=== PATIENT | male | born 2000 | race Hispanic/Latino ===

== ENCOUNTER 2019-12-03 15:16 | Emergency (ER) | payer OTHER ==
[~2019-12-03] VITALS: Ht 177.8 cm; Wt 81.7 kg
[2019-12-03] MEDS ORDERED: LIDOCAINE 2% MDV 20ML VIAL SC ONE (16:00)
[2019-12-03 16:53] VITALS: BP 127/70
== END 2019-12-03 16:55 | disposition home or self-care (01) ==
LOC: M ED 15:16
DX: S61.303A Unspecified open wound of left middle finger with damage to nail, initial encounter (principal); W23.0XXA Caught, crushed, jammed, or pinched between moving objects, initial encounter; Y92.89 Other specified places as the place of occurrence of the external cause; Y93.H3 Activity, building and construction; Y99.1 Military activity; F17.290 Nicotine dependence, other tobacco product, uncomplicated

== ENCOUNTER 2021-05-02 11:02 | Emergency (ER) | payer OTHER ==
[~2021-05-02] VITALS: Ht 177.8 cm; Wt 82.0 kg
[2021-05-02 11:03] VITALS: BP 136/82
--- OUTSIDE RECORDS SUMMARY | 2021-05-02 11:09 | CCD ---
Author Author [facility] Organization [facility] Address Unknown Phone Unavailable Care Team Providers Care Lending Manager Name Role Phone Annel Alfonso Unavailable Unavailable Annel Alfonso Unavailable Unavailable Annel Alfonso Unavailable Unavailable Annel Alfonso Unavailable Unavailable Annel Alfonso PA Unavailable Unavailable Annel Alfonso PA Unavailable Unavailable Annel Alfonso PA Unavailable Unavailable Annel Alfonso PA Unavailable Unavailable Annel Alfonso PA Unavailable Unavailable Annel Alfonso PA Unavailable Unavailable Annel Alfonso PA Unavailable Unavailable Annel Alfonso PA Unavailable Unavailable Annel Alfonso PA Unavailable Unavailable Annel Alfonso PA Unavailable Unavailable Annel Alfonso PA Unavailable Unavailable Annel Alfonso PA Unavailable Unavailable Annel Alfonso Brandi PA Unavailable Unavailable Annel Alfonso PA Unavailable Unavailable Annel Alfonso Brandi PA Unavailable Unavailable Annel Alfonso Brandi PA Unavailable Unavailable Annel Alfonso Brandi PA Unavailable Unavailable Naty J Brandi PA Unavailable Unavailable Adrian Rocha MD Unavailable Unavailable Adrian Rocha MD Unavailable Unavailable Adrian Rocha MD Unavailable Unavailable Adrian Rocha MD Unavailable Unavailable Adrian Rocha MD Unavailable Unavailable Adrian Rocha MD Unavailable Unavailable UNKNOWN, CLIN[facility] TYESHA Unavailable Unavailable TURRIN, JORGE Unavailable Unavailable TURRIN, JORGE Unavailable Unavailable TURRIN, JORGE Unavailable Unavailable TURRIN, JORGE Unavailable Unavailable Re-disclosure Warning The records that you are about to access may contain information from federally-assisted alcohol or drug abuse programs. If such information is present, then the following federally mandated warning applies: This information has been disclosed to you from records protected by federal confidentiality rules (42 CFR part 2). The federal rules prohibit you from making any further disclosure of this information unless further disclosure is expressly permitted by the written consent of the person to whom it pertains or as otherwise permitted by 42 CFR part 2. A general authorization for the release of medical or other information is NOT sufficient for this purpose. The Federal rules restrict any use of the information to criminally investigate or prosecute any alcohol or drug abuse patient.The records that you are about to access may contain highly sensitive health information, the redisclosure of which is protected by Article 27-F of the [facility] Public Health law. If you continue you may have access to information: Regarding HIV / AIDS; Provided by facilities licensed or operated by the [facility] Office of Mental Health; or Provided by the [facility] Office for People With Developmental Disabilities. If such information is present, then the following [facility] mandated warning applies: This information has been disclosed to you from confidential records which are protected by state law. State law prohibits you from making any further disclosure of this information without the specific written consent of the person to whom it pertains, or as otherwise permitted by law. Any unauthorized further disclosure in violation of state law may result in a fine or senior living sentence or both. A general authorization for the release of medical or other information is NOT sufficient authorization for further disc losure. Encounters Encounter Providers Location Date Indications Data Source(s ) Emergency Attender: Adrian Rocha MDConsultant: TYESHA BOWLES 03/29/2021 12:53:00 PM EDT - 03/29/[facility]21 07[facility]14[facility]. Emergency Attender: JORGE HERMOSILLO 2020 02:42:00 PM EDT - 03/07/2021 07:39:00 PM EDT [facility] Patient discharged. Outpatient Attender: Brandi GARRIDO 04/28 01:06:00 PM EDT - 04/28/2020 02:06:00 PM EDT [facility] Immunizations Vaccine Date Status Description Data Source(s) COVID-19 VACCINE [place] 12/02/2020 12:00:00 AM EDT completed [facility]IS Vaccine Series Complete: YESThis Data wa s Submitted to [facility]. Medications No Information Insurance Providers Payer name Policy type / Coverage type Policy ID Covered green party ID Covered green party's relationship to richardson Policy Richardson Plan Information [facility] - O/P [id number] 18 [id number] [facility] ACTIVE DUTY [id number] SP [id number] Problems, Conditions, and Diagnoses Code Display Name Description Problem Type Effective Dates Data Source(s) Z8719 Personal history of other diseases of th e digestive system Personal history of other diseases of the digestive system Diagnosis 03/16 12:53:00 PM EDT [facility] H35190 Nicotine dependence, other tobacco produ ct, uncomplicated Nicotine dependence, other tobacco product, uncomplicated Diagnosis 03/29 12:53:00 PM EDT [facility] K219 Gastro-esophageal reflux disease without esophagitis Gastro-esophageal reflux disease without esophagitis Diagnosis 03/29/2021 12:53:00 PM ED T [facility] 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 Diagnosis 03/29/2021 12:53:00 PM EDT [facility] R1031 Right lower quadrant pain Right lower quadrant pain Di agnosis 03/29/2021 12:53:00 PM EDT [facility] K2970 Gastritis, unspecified, without bleeding Gastritis, unspecified, without bleeding Diagnosis 03/07/2021 02:42:00 PM EDT [facility] R1013 Epigastric pain Epigastric pain Diagnosis 03/07/2021 02:4 2:00 PM EDT [facility] [id number] Pain in left hip Pain in left hip Diagnosis 04/28/2020 01 :06:00 PM EDT [facility] Surgeries/Procedures No Information Results ID Date Data Source [id number] 03/29/2021 12:53:00 PM EDT [facility] 1 OrderSheet [facility] Emergency Department [address] [place] [address] Phone #: ext- [phone] 03/29/2021 12:49 [facility]: [id number] Sex: M : 2000 Age: 21yWEIGHT:81.6 kg (S) HEIGHT:70 inches (S) BMI:25.8ALLERGIES: NoneCHIEF COMPLAINT: abdominal painDIAGNOSIS: Mesenteric lymphadenitis, Abdominal painLAB ORDERSOrder Description Priority Entered Acknowledged InitialedCBC w Diff STAT 15:03/29/2021 15:34 [place] [facility]; [id number] STAT 15:03/29/2021 15:34 [place] ED [facility] Ra[facility] PA; Fjrr9Leeehx Acid STAT 15:03/29/2021 15:34 [place] [facility] PA; [id number] STAT 15:03/29/2021 15:34 [place] ED [place] [facility] Raquel CAITY PA; [id number] (Clean STAT 15:03/29/2021 15:23 [place] EDCatch) Venkat [employer] [facility] Raquel ER PA; [id number] STUDY ORDERSOrder Description Priority Entered Acknowledged InitialedCT Abd PEL W/ IV STAT 15:03/29/2021 16:57 TerryContrast Only Venkat Camarillo RN(Oxygen?(No)) PA;(IV?(Yes)) NOTES: RLQ Pain Reason for Study: Abdominal PainMEDICATION/IV/DRIP/FLUID ORDERSOrder Description Priority Entered Acknowledged InitialedNS IV 1000 mL 15:03/29/2021 15:42 Amanda,Bolus: : Bolus 1000 Venkat Ornelas RyanmL (X1) PA;Toradol IVP 30 mg 15:03/29/2021 15:42 Amanda, 2 OrderSheet [facility] Emergency Department [address] [place] [address] Phone #: ext- [phone] 03/29/2021 12:49 Patient: JAILYN CALLOWAY Sex: M : 2000 Age: 21y Venkat GARRIDO;GENERAL ORDERSOrder Description Priority Entered Acknowledged Initialed[Electronically signed by Alecia Styles R.N. (19:14 03/29/2021)][Electronically signed by Venkat Ornelas (23:23 03/30/2021)][Electronically locked by Alecia Styles R.N. (19:14 03/29/2021)] Name Value Range Interpretation Code Description Data Jeannie rce(s) Supporting Document(s) ID Date Data Source [id number] 03/29/2021 12:53:00 PM EDT [facility] 1 Medication Reconciliation Report [facility] Emergency Department [address] [place] [address] Phone #: ext- [phone] 03/29/2021 12:49 Patient: JAILYN CALLOWAY Sex: M : 2000 Age: 21yWeight: 81.6 kgHeight/Length: 70 in.BMI: 25.8ALLERGIES: NoneThe patient's Home Medications are listed below:CONTINUE TAKING THE FOLLOWING MEDICATIONS: Protonix Oral 40 mg, dailyThe source(s) of the original Home Medication information:patientThe following Medications were given to the patient in the Emergency Department:NS [IV] IV Fluids bolus 1000 mL wide open, administered: 15:42 03/29/2021Toradol [IVP] IVP 30 mg, administered: 15:42 03/29/2021The following Medications were prescribed to the patient:ciprofloxacin 500 mg tablet Take 1 tablet twice a day as directed for 10 days -- Dispense 20 tablet.Refills: 0. Substitution permitted.Pharmacy - [facility] - [id number] [facility] ; [place] [address]. FaxNumber: .metronidazole 500 mg tablet Take 1 tablet every eight hours as directed for 10 days -- for diarrhea /gastroenteritis. Dispense 30 tablet. Refills: 0. Substitution permitted.Pharmacy - [facility] - [id number] [facility] ; [place] [address]. . -- RADHIKA Lipscomb Name Value Range Interpretation Code Description Data Jeannie rce(s) Supporting Document(s) ID Date Data Source [id number] 03/29/2021 12:53:00 PM EDT [place] [address] Medication Administration Record [facility] Emergency Department [address] [place] [address] Phone #: ext- [phone] 03/29/2021 12:49 Patient: JAILYN CALLOWAY Sex: M : 2000 Age: 21yWeight: 81.6 kgHeight/Length: 70 inBMI: 25.8ALLERGIES: None Date/Time Medication Administered Medication OrderedStart NS [IV] NS IV 1000 mL Bolus: : Bolus 399157:[id number] 03/29/2021 Dose: IV Fluids mL (X1)Jacob Patel, Bolus: 1000 mL wide open---- Dispensed: 1000 mL bagStop Site: #1 left AC16:55 03/29/2021Van Camarillo RNGiven TORADOL [IVP] (KETOROLAC Toradol IVP 30 mg15:42 03/29/2021 TROMETHAMINE)Jacob Patel, Dose: 30 mg IVP Site: #1 left AC Name Value Range Interpretation Code Description Data Jeannie rce(s) Supporting Document(s) ID Date Data Source [id number] 03/29/2021 12:53:00 PM EDT [facility] 1 General Instructions [facility] Emergency Department [address] [place] [address] Phone #: ext- [phone] 03/29/2021 12:49 Patient: JAILYN CALLOWAY Sex: M : 2000 Age: 21yAcute right lower quadrant abdominal pain.Chronic mesenteric lymphadenitisINSTRUCTIONSWarnings: Further evaluation is necessary. It is very important to follow up with a healthcare provider.GENERAL WARNINGS: Return or contact your physician immediately if your condition worsens orchanges unexpectedly, if not improving as expected, or if other problems arise. SPECIFICALLY, return ifyou develop fever, the inability to keep fluids down, blood in vomitus or blood in diarrhea; or if there is noimprovement in the pain in the abdomen.Your Current Medications: Your current home medications have been reviewed.CONTINUE TAKING THE FOLLOWING MEDICATIONS:Protonix Oral : 40 mg daily.Prescription Medications:ciprofloxacin 500 mg tablet Take 1 tablet twice a day as directed for 10 days -- Dispense 20 tablet.Refills: 0. Substitution permitted.Pharmacy - [facility] [address] [facility] ; [place] [address]. .metronidazole 500 mg tablet Take 1 tablet every eight hours as directed for 10 days -- for diarrhea /gastroenteritis. Dispense 30 tablet. Refills: 0. Substitution permitted.Pharmacy - [facility] - [address] [facility] ; [place] [id number]. .Follow-up:Follow up with your doctor tomorrow. Call for the next available appointment. Reason for referral:evaluation, treatment and refer to Gastroenterolgy if symptoms persist. Summary of care provided topatient.Understanding of the discharge instructions verbalized by patient. ADDITIONAL INFORMATIONUnknown Causes of Abdominal Pain (Male) 2 General Instructions [facility] Emergency Department [address] [place] [address] Phone #: ext- [phone] 03/29/2021 12:49 Patient: JAILYN CALLOWAY Sex: M : 2000 Age: 21yBased on your visit today, the exact cause of your abdominal pain is not clear. Your exam and testsdon't suggest a dangerous cause at this time. However, the signs of a serious problem may takemore time to appear. Although your evaluation was reassuring today, sometimes early in the courseof many conditions, exam and lab tests can appear normal. Therefore, it is important for you to watchfor any new symptoms or worsening of your condition.It may not be obvious what caused your symptoms. Pay attention to things that do seem to makeyour symptoms worse or better and discuss this with your doctor when you follow up.The evaluation of abdominal pain in the emergency department may only require an exam by thedoctor or it may include blood, urine or imaging studies, depending on many factors. Sometimesexams and tests can identify a cause but in many cases, a clear cause is not found. Further testing atfollow up visits may help to suggest a clear diagnosis.Home care Rest as much as you can until your next exam. Try to avoid any medicines (unless otherwise directed by your doctor), foods, activities, or other factors that may have contributed to your symptoms. Try to eat foods that you know that you have tolerated well in the past. Certain diets may be recommended for some conditions that cause abdominal pain. However, since the cause of your symptoms may not be clear, discuss your diet more with your healthcare provider or specialist for further recommendations. If you have diarrhea, it may help to avoid dairy (lactose) for the time being. A low fat, low fiber diet can also help. Eating several small meals per day as opposed to 2 or 3 larger meals may help. Avoid dehydration. Make sure to drink plenty of water. Other options include broth, soup, gelatin, sports drinks, or other clear liquids. Watch closely for anything that may make your symptoms worse or better. Pay close attention to symptoms below that may mean your condition is getting worse.Follow-up careFollow up with your healthcare provider if your symptoms are not improving, or as advised. In somecases, you may need more testing.When to seek medical advice 3 General Instructions [facility] Emergency Department [address] [place] [address] Phone #: ext- [phone] 03/29/2021 12:49 Patient: JAILYN CALLOWAY Sex: M : 2000 Age: 21yCall your healthcare provider right away if any of these occur: Pain is becoming worse You are unable to take your medicines or can't keep water down due to excessive vomiting Swelling of the abdomen Fever of 100.4F (38C) or higher, or as directed by your healthcare provider Blood in vomit or bowel movements (dark red or black color) Jaundice (yellow color of eyes and skin) New onset of weakness, dizziness or fainting New onset of chest, arm, back, neck or jaw pain [id number] [employer]. [address] [place] [address]. All rights reserved. This information is not intended as asubstitute for professional medical care. Always follow your healthcare professional's instructions.Mesenteric AdenitisThe mesentery is a sheet of tissue that attaches the intestines to the belly (abdominal) wall. Lymphnodes are small glands throughout the body. They are part of the system that fights infection.Mesenteric adenitis is swelling of the lymph nodes in the mesentery. It is also called mesentericlymphadenitis. The problem is caused by an infection , or an inflammatory condition, often of theintestines.Mesenteric adenitis can cause these symptoms: Severe pain in the abdomen, which can be all over Pain can be in the lower right side, sometimes mimicking appendicitis Nausea and vomiting Diarrhea Fever Loss of appetite MalaiseThis condition can be hard to diagnose because the pain is often not just in one spot. You may needtests for this reason. Sometimes, the pain shifts to the lower right part of your abdomen. When thishappens, it may seem like appendicitis. This is another reason for testing. 4 General Instructions [facility] Emergency Department [address] [place] [address] Phone #: ext- [phone] 03/29/2021 12:49 Patient: JAILYN CALLOWAY Sex: M : 2000 Age: 21yThe problem most often goes away in a few days. If you have a bacterial infection, you may need totake antibiotics. Medicines may also be given to help relieve pain until the problem calms down.Home care Your healthcare provider may prescribe medicines for pain, nausea, or infection. Follow the healthcare provider's instructions when using these medicines. If you are given medicine for infection, take all of it as directed until it is gone, even if you feel better. Rest until you feel better. To help relieve abdominal pain, soak a towel in warm water and place it on your belly. If you have had diarrhea or vomiting, follow the guidelines you are given for what to eat and drink and what to avoid. Drink plenty of fluids. Don't smoke or drink alcohol.Follow-up careFollow up with your healthcare provider, or as advised. It is often very hard to tell mesenteric adenitisapart from appendicitis. So close follow-up is needed.If X-rays were done, a radiologist will look at them. You will be told if there are changes.Call [phone] if any of these occur: Trouble breathing Confusion Very drowsy or trouble awakening Fainting or loss of consciousness Rapid heart rate Chest painWhen to seek medical adviceCall your healthcare provider right away if any of these occur: Fever of 100.4F (38C) or higher, or as directed by your healthcare provider 5 General Instructions [facility] Emergency Department [address] [place] [address] Phone #: agg- [phone] 03/29/2021 12:49 Patient: JAILYN CALLOWAY Sex: M : 2000 Age: 21y Pain not relieved with medicine, or pain that goes away and returns Pain that is getting worse over time or changing in location Pain that localizes to the right lower abdomen, and not improving or is worsening Severe diarrhea or vomiting Severe headache Few or no stools or gas Little or no urine Leg or foot cramps Small dark red dots on the skin Swelling in the abdomen Bloody stools [id number] [employer]. [address] [place] [address]. All rights reserved. This information is not intended as asubstitute for professional medical care. Always follow your healthcare professional's instructions. You have been given the following additional information: Unknown Causes of Abdominal Pain (Male) Adenitis, Mesenteric(Electronically signed by RADHIKA Lipscomb 03/30/2021 23:23) Name Value Range Interpretation Code Description Data Jeannie rce(s) Supporting Document(s) ID Date Data Source [id number] 03/29/2021 12:53:00 PM EDT [facility] 1 Clinical Report - Nurses [facility] Emergency Department [address] [place] [address] Phone #: ext [phone] 03/29/2021 12:49 Patient: JAILYN CALLOWAY Sex: M : 2000 Age: 21yTRIAGEAcuity: LEVEL 3.Chief Complaint: ABDOMINAL PAIN.Alert. No acute distress.Onset. (5 months). ( Pt has had abd pain for 5 months, he had an US of his gallbladder here. Pt had anapt with his PCP today and had RLQ pain and suggested he come for a CT scan.). --13:03/29/21Nica Bright R.N.Treatment HIV COUNSELOR:None. --13:03/29/21 Nica Bright R.N.SEPSIS SCREEN: SIRS SCREEN NEGATIVE. SEPSIS SCREEN NEGATIVE. No suspected or confirmedsigns of infection present. --13:03/29/21 Nica Bright R.N.13:03/29/21. BP: 118/64. MAP: 82. HR: 66. RR: 16. O2 saturation: 96% on room air. Temp: 97.9 F(oral). Pain level now: 09/22. --13:03/29/21 Nica Bright R.N.Weight: 81.6 kg stated. Height/Length: 70 inches Per Patient. BMI: 25.8. --12:56 03/29/21 Nica Bright R.N.MedicationsProtonix Oral 40 mg, daily. --13:03/29/21 Nica Bright R.N.AllergiesNone. --13:03/29/21 Nica Bright R.N.PROBLEMS:COVID- 19.Gastritis.Gastroesophageal Reflux Disease. --13:03/29/21 Nica Bright R.N.Medication/allergy information source: the patient. --13:03/29/21 Nica Bright R.N.ADDITIONAL SURGERIES:no known surgeries.HistoryPAST MEDICAL HX: Immunizations: up-to-date. 2 Clinical Report - Nurses [facility] Emergency Department [address] [place] [address] Phone #: ext- [phone] 03/29/2021 12:49 Patient: JAILYN CALLOWAY Sex: M : 2000 Age: 21y SOCIAL HX: Smoker- current status unknown (Vape). Occasional alcohol use. No drug use. No recent travel. No known contact with a sick individual. He was offered HIV testing but declined. Patient education was provided. He was offered hepatitis C testing but declined. Patient education was provided. He has not traveled outside the [place] Infectious disease exposure: No infectious disease exposure. (COVID screen negative, pt was vaccinated for COVID). Patient is not a known carrier of tuberculosis, hepatitis, HIV, MRSA or VRE. Patient is not a known carrier of CRE. SELF HARM ASSESSMENT: Self harm assessment was performed. The patient answered "no" to the question(s) "Do you have thoughts of harming or killing yourself?", "Do you have a plan for harming or killing yourself?" and "Have you recently had thoughts about harming or killing others?". ABUSE ASSESSMENT: Abuse assessment. The patient had positive responses to the question(s) "Do you feel safe in your home?" (yes). Abuse denied. No suspicion of abuse. No report of abuse. NUTRITIONAL RISK ASSESSMENT: The nutritional risk assessment revealed no deficiencies. FUNCTIONAL ASSESSMENT: Functional assess ment: no impairments noted. LEARNING NEEDS ASSESSMENT: The learning needs assessment revealed no barriers. FALL RISK ASSESSMENT: Fall risk assessment completed. No risk factors identified. SKIN INTEGRITY ASSESSMENT: Skin integrity risk assessment completed. No skin integrity risk identified. --13:03/29/21 Ncia Bright R.N. Interventions Identification band on patient. --13:03/29/21 Nica Bright R.N.NURSING PROGRESS NOTES15:03/29/21. BP: 115/62. HR: 64. RR: 24. O2 saturation: 92%. --15:06 03/29/21 GPNXRaquel, ER Tech1 Correction. --15:03/29/21 GPNX Raquel, [employer] Tech1 15:03/29/21. BP: 115/62. HR: 55. RR: 16. O2 saturation: 100%. --15:07 03/29/21 GPNX Raquel, ER Tech1 Patient ID band checked for patient name and birthdate: patient confirmed. Blood samples drawn by lab per protocol ; labeled in presence of the patient and sent to lab. --15:36 03/29/21 [place] [employer], Raquel, Tech1 15:42 03/29/2021 Site #1 started via IV in the left antecubital space with an 20g angiocath, with aseptic technique and good blood return; one attempt. Saline lock flushed with 10 mL saline. --15:42 03/29/21 Jacob Patel 3 Clinical Report - Nurses [facility] Emergency Department [address] [place] [address] Phone #: [phone] ext- [phone] 03/29/2021 12:49 Patient: JAILYN CALLOWAY Sex: M : 2000 Age: 21y 15:42 03/29/2021 Started bag #1 1000 mL IV Fluids NS; bolus of 1000 mL wide open via site #1 via IV pump. Allergies verified and confirmed 5 rights. IV patency established. IV site checked: no pain, redness, or swelling. IV flushed thoroughly pre- and post-medication administration. Information reviewed with patient including reason for taking this medication, signs of allergic reaction and precautions. Verbalizes understanding. --15:42 03/29/21 Jacob Patel 15:42 03/29/2021 Toradol (Ketorolac Tromethamine) IVP 30 mg given via site #1. Allergies verified and confirmed 5 rights. IV patency established. IV site checked: no pain, redness, or swelling. IV flushed thoroughly pre- and post-medication administration. IVP given by RN. Information reviewed with patient including reason for taking this medication, signs of allergic reaction and precautions. Verbalizes understanding. --15:42 03/29/21 Jacob Patel 16:09 03/29/21. BP: 113/63. HR: 56. RR: 16. O2 saturation: 99%. --16:09 03/29/21 [facility] [employer] [facility] Tech1 16:55 03/29/2021 IV Fluids NS via IV site #1 Discontinued: bag #1 infused. Total amount infused: 1000 mL. IV patency established. IV site checked: no pain, redness, or swelling. IV flushed thoroughly. --17:06 03/29/21 Van Camar[place] RN Patient transported to [place] by wheelchair with mask and interventional radiology technologist. ([id number]). --17:07 03/29/21 Van Camarillo RN 17:12 03/29/21. BP: 118/55. HR: 61. RR: 16. O2 saturation: 100%. --17:12 03/29/21 [facility] Tech1 18:08 03/29/21. BP: 106/49. HR: 57. RR: 16. O2 saturation: 99%. --18:08 03/29/21 [facility], [facility] Tech1.DISPOSITION / DISCHARGE 18:43 03/29/21. BP: 112/75. HR: 69. RR: 16. O2 saturation: 100%. Temp: 97.8 F. Pain level now 07/25. --18:44 03/29/21 [facility], [facility] Tech1 19:14 03/29/2021 Site #1 removed upon discharge. Catheter intact. Pressure dressing and bandaid applied. --19:14 03/29/21 Alecia Styles R.N. Condition at departure: improved. No learning barriers present. Discharge instructions provided and reviewed with the patient. Reviewed medication(s). Treatments reviewed. The patient was discharged by the physician. He was discharged home and accompanied by parent. He left ambulatory and via private vehicle. Patient driving. --19:14 03/29/21 Alecia Styles R.N.Locked/Released at 03/29/2021 19:14 by Alecia Styles R.N. 4 Clinical Report - Nurses [facility] Emergency Department [address] [place] [address] Phone #: ext- [phone] 03/29/2021 12:49 Patient: JAILYN CALLOWAY Sex: Sincere : 2000 Age: 21y Name Value Range Interpretation Code Description Data Jeannie rce(s) Supporting Document(s) ID Date Data Source [id number] 03/29/2021 12:53:00 PM EDT [facility] 1 Clinical Report - Physicians/Mid Levels [facility] Emergency Department [address] [place] [address] Phone #: ext- [phone] 03/29/2021 12:49 Patient: JAILYN CALLOWAY Sex: M : 2000 Age: 21y Time Seen: 15:23 03/29/2021. Arrived- By private vehicle. Historian- patient.HISTORY OF PRESENT ILLNESS Chief Complaint: ABDOMINAL PAIN. This started 5 months ago, worse today; sent here from [facility] to rule out appy. It was abrupt in onset and has been constant. It is described as "pain" and it is described as located in the right lower quadrant. At its maximum, severity described as moderate. When seen in the E.D., severity described as moderate. No nausea, loss of appetite, vomiting or diarrhea. Similar symptoms previously. Patient has had similar symptoms several times. Recent medical care: The patient was seen recently at another facility in a clinic.REVIEW OF SYSTEMSNo constipation, black stools, hematemesis, difficulty with urination or pain with urination. No urinaryfrequency, bloody stools, fever, headache or sore throat. No blurred vision, chest pain, difficulty breathing,cough or joint pain. No skin rash, chills or back pain. The patient has not had weight loss.PAST HISTORYProblems:COVID-19.Gastritis.Gastroesophageal Reflux Disease. Additional Surgeries: no known surgeries. Medications: Protonix Oral 40 mg, daily. Allergies: None.SOCIAL HISTORYSmoker- current status unknown (Vapes). Occasional alcohol use. No drug use.PHYSICAL EXAMVital Signs: 03/29/2021 13:01 BP: 118/64. MAP: 82. HR: 66. RR: 16. O2 saturation: 96% on room air.Temp: 97.9 F. Pain level now: 09/22. Have been reviewed as normal. Oxygen saturation ursula l.Appearance: Alert. Oriented X3. No acute distress.Eyes: Pupils equal, round and reactive to light. Eyes normal inspection.ENT: Ears normal. Nose normal. Pharynx normal. 2 Clinical Report - Physicians/Mid [facility] Emergency Department [address] [place] [address] Phone #: ext- [phone] 03/29/2021 12:49 Patient: JAILYN CALLOWAY Sex: M : 2000 Age: 21y Neck: Normal inspection. CVS: Normal heart rate and rhythm. Heart sounds normal. Respiratory: No respiratory distress. Breath sounds normal. Abdomen: Soft. Moderate tenderness in the right lower quadrant. Bowel sounds normal. No organomegaly. No mass. Femoral pulses equal. Back: Normal inspection. Skin: Skin warm and dry. Normal skin color. No rash. Normal skin turgor. Extremities: Extremities exhibit normal ROM. No lower extremity edema. Neuro: Oriented X 3.LABS, X-RAYS, AND EKGCT Abdomen - Pelvis: Appendix normal. mesenteric adenitis. Study type: upper abdomen; lowerabdomen; pelvis. The study was interpreted by the radiologist and contemporaneously by me.Interpretation time: 18:40 03/29/2021.Laboratory Tests: Laboratory tests have been ordered, with results reviewed and considered in themedical decision making process. CBC w Diff: (CORKY: 03/29/2021 15:35) ( MsgRcvd 03/29/2021 15:48) Final results Test Result Flag Units (Reference) CBC W/AUTOMATED DIFF COMPLETE BLOOD COUNT WBC 8.1 10/uL (4.2 - 11.0) RBC 4.92 10/uL (4.50 - 6.30) HEMOGLOBIN 15.0 g/dL (14.0 - 16.0) HEMATOCRIT 44.1 % (41.0 - 51.0) MCV 89.6 fL (80.0 - 94.0) MCH 30.5 pg (27.0 - 34.0) MCHC 34.0 g/dL (31.0 - 36.0) RDW 12.5 % (11.5 - 14.8) PLATELETS 298 10/uL (150 - 450) MPV 9.8 fL (7.4 - 10.4) NEUT 58.7 % (37.0 - 80.0) LYMPH 28.1 % (25.0 - 40.0) MONO 9.4 H % (3.0 - 8.0) EOS 3.1 % (0.0 - 7.0) BASO 0.5 % (0.0 - 2.0) %IG 0.2 H % (0.0 - 0.0) %NRBC 0.0 % (0.0 - 0.0) #NEUT 4.77 10/uL (2.00 - 6.90) #LYMPH 2.28 10/uL (0.60 - 3.40) #MONO 0.76 10/uL (0.00 - 0.90) #EOS 0.25 10/uL (0.00 - 0.70) #BASO 0.04 10/uL (0.00 - 0.20) #IG 0.02 10/uL (0.00 - 0.10) #NRBC 0.00 10/uL (0.00 - 0.00) MANUAL DIFF NOT INDICATED RBC MORPH NOT INDICATED CMP: (CORKY: 03/29/2021 15:35) ( MsgRcvd 03/29/2021 16:10) Final results Test Result Flag Units (Reference) COMPREHENSIVE METABOLIC PANEL COMPREHENSIVE METABOLIC PANEL 3 Clinical Report - Physicians/Mid Levels [facility] Emergency Department [address] [place] [address] Phone #: ext- [phone] 03/29/2021 12:49 Patient: JAILYN CALLOWAY Sex: M : 2000 Age: 21y SODIUM 138 mEq/L (134 - 153) POTASSIUM 4.0 mEq/L (3.6 - 5.0) CHLORIDE 99 mEq/L (98 - 107) CO2 27 MEQ/L (22 - 30) GLUCOSE 90 MG/DL (70 - 99) BUN 17 MG/DL (7 - 21) CREATININE 1.0 MG/DL (0.7 - 1.5) BUN/CREAT 17 (8 - 27) TOTAL PROTEIN 7.9 G/DL (6.3 - 8.2) ALBUMIN 5.1 H G/DL (3.9 - 5.0) GLOBULIN 2.8 GM/DL (2.4 - 3.2) A/G RATIO 1.8 (0.8 - 2.0) CALCIUM 9.8 MG/DL (8.4 - 10.2) TOTAL BILI <0.7 MG/DL (0.2 - 1.3) ALKALINE PHOS 55 U/L (38 - 126) SGOT/AST 23 U/L (5 - 40) SGPT/ALT 15 U/L (7 - 56) ANION GAP 12.0 mmol/L (8.0 - 16.0) AGE 21 yrs NON-AA GFR >60 mL/min AFR AMER GFR >60 mL/min Male GFR Interprentation 20-49 yrs >60 mL/min Jmirtn57-87 yrs >56 mL/min Normal 60-69 yrs >49 mL/min Normal 70-79yrs>42 mL/min Normal 80 and above >35 mL/min Normal Female GFRInterpretation 20-39 yrs >60 mL/min Normal 40-49 yrs >58 mL/minNormal 50-59 yrs >51 mL/min Normal 60-69 yrs >45 mL/min Rlmbsx24-46 yrs >39 mL/min Normal 80 and above >32 mL/min NormalLactic Acid: (CORKY: 03/29/2021 15:35) ( [facility] 03/29/2021 15:52) Final results Test Result Flag Units * *(Reference) LACTIC ACID 1.4 MMOL/L (0.2 - 2.2)Lipase: (CORKY: 03/29/2021 15:35) ( [facility] 03/29/2021 16:09) Final results Test Result Flag Units (Reference) LIPASE 35 U/L (13 - 60)Urinalysis: (CORKY: 03/29/2021 16:30) ( [facility] 03/29/2021 16:37) Final results Test Result Flag Units (Reference) URINALYSIS URINALYSIS SOURCE R COLOR nica (NORMAL: Yello CLARITY clear (NORMAL: Clear SPEC GRAVITY 1.020 (1.001 - 1.030 pH 5 (5 - 9) GLUCOSE NORM (NORMAL: Negat BILIRUBIN NEG (NORMAL: Negat KETONE NEG (NORMAL: Negat PROTEIN NEG (NORMAL: Negat NITRITE NEG (NORMAL: Negat BLOOD NEG (NORMAL: Negat LEUK EST NEG (NORMAL: Negat UROBILINOGEN NOR (less than 1.0 MICROSCOPIC Not IndicateCT Abd PEL W/ IV Contrast Only: (CORKY: 03/29/2021 15:23) ( [facility] 03/29/2021 17:36) In Progress 4 Clinical Report - Physicians/Mid Levels [facility] Emergency Department [address] [place] [address] Phone #: ext- [phone] 03/29/2021 12:49 Patient: JAILYN CALLOWAY Sex: M : 2000 Age: 21y CT ABD Reason(s): Abdominal Pain TRANSPORTATION: WC IV? IV?(Yes) O2? Oxygen?(No) Ro CMTS: RLQ Pain.PROGRESS AND PROCEDURESCourse of Care: 18:40 Mar 29 2021. Evaluation after observation. (Discussed risks, benefits, options andpt is agreeable with dx and t x plan.). Patient counseled in person regarding the patient's stable condition, test results, diagnosis and need for follow-up. Patient agrees with plan of care. 18:41 Mar 29 2021. Disposition: Discharged home in good and improved condition (18:41 Sep 2020).CLINICAL IMPRESSION Acute right lower quadrant abdominal pain. Chronic mesenteric lymphadenitisINSTRUCTIONS Warnings: Further evaluation is necessary. It is very important to follow up with a healthcare provider. GENERAL WARNINGS: Return or contact your physician immediately if your condition worsens or changes unexpectedly, if not improving as expected, or if other problems arise. SPECIFICALLY, return if you develop fe sameer, the inability to keep fluids down, blood in vomitus or blood in diarrhea; or if there is no improvement in the pain in the abdomen. Your Current Medications: Your current home medications have been reviewed. CONTINUE TAKING THE FOLLOWING MEDICATIONS: Protonix Oral : 40 mg daily. Prescription Medications: ciprofloxacin 500 mg tablet Take 1 tablet twice a day as directed for 10 days -- Dispense 20 tablet. Refills: 0. Substitution permitted. Pharmacy - [facility] [address] [facility] ; [place] [address]. . metronidazole 500 mg tablet Take 1 tablet every eight hours as directed for 10 days -- for diarrhea / gastroenteritis. Dispense 30 tablet. Refills: 0. Substitution permitted. Pharmacy - [facility] [employer] [id number] [facility] ; [place] [address]. . 5 Clinical Report - Physicians/Mid Levels [facility] Emergency Department [address] [place] [address] Phone #: ext- [phone] 03/29/2021 12:49 Patient: JAILYN CALLOWAY Sex: M : 2000 Age: 21y Follow-up: Follow up with your doctor tomorrow. Call for the next available appointment. Reason for referral: evaluation, treatment and refer to Gastroenterolgy if symptoms persist. Summary of care provided to patient. Understanding of the discharge instructions verbalized by patient.(Electronically signed by RADHIKA Lipscomb 03/30/2021 23:23) Name Value Range Interpretation Code Description Data Jeannie rce(s) Supporting Document(s) ID Date Data Source [id number] 03/30/2021 10:36:00 [place] [address] PHONE: [phone] FAX: [phone] Name .................. : ELLI Denis Acct Number.................. : [id number] ROOM. ................. : TR-06 Number ................... : [id number] Stay type ............. : E/R Discharge Date......... ... : 03/29/21 Admit Date ......... : 03/29/21 Admit Phys .................... : KINGSTON Fuentes Date of ....... : 2000 Family Phys ................... : UNKNOWN ZANE Phone .................. : [phone] Age ................................ : 21 Film# .................. .:[id number] Sex ................................. : M Unsigned transcriptions are preliminary reports and do not represent a medical or legal document CT ABD & PELVIS W/ IV ONLY [id number] COMPLETE:03/29/21 17:36 SYEDA [id number] Reason(s): Ab dominal Pain CT ABDOMEN AND PELVIS WITH IV CONTRAST INDICATION: Right lower quadrant abdominal pain COMPARISON: None IV CONTRAST: Every 5 cc Isovue-370 One or more of the following dose reduction techniques were utilized in effectively lowering the radiation dose for this examination: Automated Exposure Control, Adjustment of the mA and/or kV according to patient size, or Iterative reconstruction. FINDINGS: LUNG BASES: No pulmonary nodules or masses. No pleural effusions. LIVER/BILIARY: Normal. SPLEEN: Normal. PANCREAS: Normal. ADRENALS: Normal bilaterally. RIGHT KIDNEY: No hydronephrosis, stones or masses. LEFT KIDNEY: No hydronephrosis, stones or masses. Water density nonenhancing cyst lower pole 9 mm. OTHER : No abnormalities seen in the urinary bladder. The seminal vesicles are unremarkable Page 1 of 3 [facility] [address] [place] [address] PHONE: FAX: [phone] Name .................. : ELLI JAILYN Denis [facility] Number.................. : [id number] ROOM. ................. : TR-06 Number ................... : [id number] Stay type ............. : E/R Discharge Date......... ... : 03/29/21 Admit Date ......... : 03/29/21 Admit Phys .................... : KINGSTON Fuentes Date of ....... : 2000 Family Phys ................... : UNKNOWN ZANE Phone .................. : [phone] Age ................................ : 21 Film# .................. .:[id number] Sex ................................. : M Unsigned transcriptions are preliminary reports and do not represent a medical or legal document CT ABD & PELVIS W/ IV ONLY [id number] COMPLETE:03/29/21 17:36 SYEDA [id number] Reason(s): Abdominal Pain BOWEL/GI: The appendix is well-visualized and is unremarkable. No dilated bowel or obstruction. No bowel wall thickening. No hernia. PERITONEUM: No free fluid, focal fluid collection or free air. NODES/RETROPERITONEUM: No aortic aneurysm. No enlarged lymph nodes in the retroperitoneum. Multiple mildly prominent lymph nodes in the mesentery mostly in the right lower quadrant. These measure up to 13 mm short axis. SKELETAL: L4-5 left central disc protrusion with mild to moderate thecal sac compression. This is probably displacing the left L5 nerve root posteriorly. L5-S1 shows a moderate central disc protrusion with moderate thecal sac compression. This contacts the S1 nerve roots bilaterally. IMPRESSION: 1. Normal appendix. No evidence of appendicitis. 2. Multiple mildly prominent mesenteric lymph nodes in the right lower quadrant measuring up to 13 mm. This could represent mesenteric adenitis. 3. Disc protrusions at L4-5 and L5-S1. Preliminary report for this exam was provided by Nikki. Electronically Reviewed and Signed By Reji Moore MD , 03/30/21 10:36, AURELIANO Transcribe Initials: ANU, Transcribe Date: 03/30/21 10:23, Dictation Date: Copy for: ANABELLA REHMAN via fax Copy for: EMERGENCY DEPT via [facility] Page 2 of 3 [facility] [address] [place] [address] PHONE: [phone] FAX: [phone] Name .................. : ELLI Denis Acct Number.................. : [id number] ROOM. ................. : TR-06 MR Number ................... : [id number] Stay type ............. : E/R Discharge Date......... ... : 03/29/21 Admit Date ......... : 03/29/21 Admit Phys .................... : KINGSTON Fuentes Date of ....... : 2000 Family Phys ................... : UNKNOWN ZANE Phone .................. : [phone] Age ......... ....................... : 21 Film# .................. .:[id number] Sex ................................. : M Unsigned transcriptions are preliminary reports and do not represent a medical or legal document CT ABD & PELVIS W/ IV ONLY [id number] COMPLETE:03/29/21 17:36 SYEDA [id number] Reason(s): Abdominal Pain Copy for: 710 MED REC DISCHARGED Page 3 of 3 Name Value Range Interpretation Code Description Data Jeannie rce(s) Supporting Document(s) ID Date Data Source [id number] 03/29/2021 04:37:00 PM EDT [facility] Name Value Range Interpretation Code Description Data Jeannie rce(s) Supporting Document(s) [facility] COLOR nica NORMAL: Yellow [facility] ospital CLARITY clear NORMAL: Clear [facility] spital Specific gravity of Urine by Test strip 1.020 1.001 - 1.030 [facility] pH 5 5 - 9 [facility] Glucose [Mass/volume] in Urine by Test strip NORM NORMAL: Negat [facility] Bilirubin.total [Presence] in Urine by Test strip NEG NORMAL: Negative [facility] Ketones [Presence] in Urine by Test strip NEG NORMAL: Negative [facility] Protein [Mass/volume] in Urine by Test strip NEG NORMAL: Negat [facility] Nitrite [Presence] in Urine by Test strip NEG NORMAL: Negative [facility] BLOOD NEG NORMAL: Negative [facility] LEUK EST NEG NORMAL: Negative [facility] Urobilinogen [Mass/volume] in Urine by Test strip NOR less valent[place] n 1.0 mg/dL [facility] MICROSCOPIC Not Indicate [facility] H ospital ID Date Data Source [id number] 03/29/2021 04:10:00 PM EDT [facility] Name Value Range Interpretation Code Description Data Jeannie rce(s) Supporting Document(s) COMPREHENSIVE METABOLIC PANEL [facility] COMPREHENSIVE METABOLIC PANEL Sodium [Moles/volume] in Serum or Plasma 138 mEq/L 134 - 153 [facility] Potassium [Moles/volume] in Serum or Plasma 4.0 mEq/L 3.6 - 5.0 [facility] Chloride [Moles/volume] in Serum or Plasma 99 mEq/L 98 - 107 [facility] Carbon dioxide, total [Moles/volume] in Serum or Plasma 27 MEQ/L 22 - 30 [facility] Glucose [Mass/volume] in Serum or Plasma 90 MG/DL 70 - 99 [facility] BUN 17 MG/DL 7 - 21 [facility] Creatinine [Mass/volume] in Serum or Plasma 1.0 MG/DL 0.7 - 1.5 [facility] BUN/CREAT 17 8 - 27 [facility] Protein [Mass/volume] in Serum or Plasma 7.9 G/DL 6.3 - 8.2 [facility] Albumin [Mass/volume] in Serum or Plasma 5.1 G/DL 3.9 - 5.0 H [facility] Globulin [Mass/volume] in Serum by calculation 2.8 GM/DL 2.4 - 3.2 [facility] A/G RATIO 1.8 0.8 - 2.0 [facility] Calcium [Mass/volume] in Serum or Plasma 9.8 MG/DL 8.4 - 10.2 [facility] Bilirubin.total [Mass/volume] in Serum or Plasma <0.7 MG/DL 0.2 - 1.3 [facility] Alkaline phosphatase [Enzymatic activity/volume] in Serum or Plasma 55 U/L 38 - 126 [facility] Aspartate aminotransferase [Enzymatic activity/volume] in Serum or Plasma 23 U/L 5 - 40 [facility] Alanine aminotransferase [Enzymatic activity/volume] in Seru m or Plasma 15 U/L 7 - 56 [facility] Anion gap 3 in Serum or Plasma 12.0 mmol/L 8.0 - 16.0 [facility]GE 21 [facility] NON-[facility] GFR >60 mL/min [facility] ital AFR AMER GFR >60 mL/min [facility] Ho spital Male GFR In terprentation 20-49 yrs >60 mL/min Normal 50-59 yrs >56 mL/min Normal 60-69 yrs >49 mL/min Normal 70-79yrs >42 mL/min Normal 80 and above >35 mL/min Normal Female GFR Interpretation 20-39 yrs >60 mL/min Normal 40-49 yrs >58 mL/min Normal 50-59 yrs >51 mL/min Normal 60-69 yrs >45 mL/min Normal 70-79 yrs >39 mL/min Normal 80 and above >32 mL/min Normal ID Date Data Source [id number] 03/29/2021 04:09:00 PM EDT [facility] Name Value Range Interpretation Code Description Data Jeannie rce(s) Supporting Document(s) Lipase [Enzymatic activity/volume] in Serum or Plasma 35 U/L 13 - 60 [facility] ID Date Data Source [id number] 03/29/2021 03:52:00 PM EDT [facility] Name Value Range Interpretation Code Description Data Jeannie rce(s) Supporting Document(s) Lactate [Moles/volume] in Serum or Plasma 1.4 MMOL/L 0.2 - 2.2 [facility] ID Date Data Source [id number] 03/29/2021 03:48:00 PM EDT [facility] Name Value Range Interpretation Code Description Data Jeannie rce(s) Supporting Document(s) CBC W/AUTOMATED DIFF [facility] COMPLETE BLOOD COUNT Leukocytes [#/volume] in Blood by Automated count 8.1 10^3/uL 4.2 - 1 1.0 [facility] Erythrocytes [#/volume] in Blood by Automated count 4.92 10^6/uL 4. 50 - 6.30 [facility] Hemoglobin [Mass/volume] in Blood 15.0 g/dL 14.0 - 16.0 [facility] Hematocrit [Volume Fraction] of Blood by Automated count 44.1 % 4 1.0 - 51.0 [facility] Erythrocyte mean corpuscular volume [Entitic volume] by Auto mated count 89.6 fL 80.0 - 94.0 [facility] Erythrocyte mean corpuscular hemoglobin [Entitic mass] by Automated count 30.5 pg 27.0 - 34.0 [facility] Erythrocyte mean corpuscular hemoglobin concentration [Mass/volume] by Automated count 34.0 g/dL 31.0 - 36.0 [facility] Erythrocyte distribution width [Ratio] by Automated count 12.5 % 11.5 - 14.8 [facility] Platelets [#/volume] in Blood by Automated count 298 10^3/uL 150 - 45 0 [facility] Platelet mean volume [Entitic volume] in Blood by Automated count 9.8 fL 7.4 - 10.4 [facility] Neutrophils/100 leukocytes in Blood by Automated count 58.7 % 37. 0 - 80.0 [facility] Lymphocytes/100 leukocytes in Blood by Manual count 28.1 % 25.0 - 40.0 [facility] Monocytes/100 leukocytes in Blood by Automated count 9.4 % 3.0 - 8.0 H [facility] Eosinophils/100 leukocytes in Blood by Automated count 3.1 % 0.0 - 7.0 [facility] Basophils/100 leukocytes in Blood by Automated count 0.5 % 0.0 - 2.0 [facility] %IG 0.2 % 0.0 - 0.0 H [facility] Hospit al %NRBC 0.0 % 0.0 - 0.0 [facility] Neutrophils [#/volume] in Blood by Automated count 4.77 10^3/uL 2.00 - 6.90 [facility] Lymphocytes [#/volume] in Blood by Automated count 2.28 10^3/uL 0.60 - 3.40 [facility] Monocytes [#/volume] in Blood by Automated count 0.76 10^3/uL 0.00 - 0.90 [facility] Eosinophils [#/volume] in Blood by Automated count 0.25 10^3/uL 0.00 - 0.70 [facility] Basophils [#/volume] in Blood by Automated count 0.04 10^3/uL 0.00 - 0.20 [facility] #IG 0.02 10^3/uL 0.00 - 0.10 [facility] ospital #NRBC 0.00 10^3/uL 0.00 - 0.00 [facility] ospital MANUAL DIFF NOT INDICATED [facility] RBC MORPH NOT INDICATED [facility] spital ID Date Data Source [id number] 03/07/2021 02:42:00 PM EDT [facility] 1 OrderSheet [facility] Emergency Department [address] [place] [address] Phone #: ext- [phone] 03/07/2021 14:41 Patient: JAILYN CALLOWAY Sex: M : 2000 Age: 21yWEIGHT:81.6 kg (S) HEIGHT:67 inches (S) BMI:28.2ALLERGIES: NoneCHIEF COMPLAINT: abdominal painDIAGNOSIS: Gastroesophageal reflux disease, GastritisLAB ORDERSOrder Description Priority Entered Acknowledged InitialedUrinalysis (Clean STAT 15:07 03/07/2021 15:07 Damion Rick) Madonna Rick R.N.; RCarleen Verbal order per; Sage Moise [facility] w Diff STAT 15:20 03/07/2021 15:52 Jorge Woods RN, M.D.;CMP STAT 15:20 03/07/2021 15:52 Jorge Woods RN, M.D.;Lipase STAT 15:20 03/07/2021 15:52 Jorge Woods RN, M.D.;Lactic Acid STAT 15:20 03/07/2021 15:52 Jorge Woods RN, M.D.;DIAGNOSTIC STUDY ORDERSOrder Description Priority Entered Acknowledged InitialedUS Gall Bladder STAT 16:14 03/07/2021 16:20 Alberto(Oxygen?(No)) Jorge Hermosillo RN, M.D.; Reason for Study: RUQ PainMEDICATION/IV/DRIP/FLUID ORDERSOrder Description Priority Entered Acknowledged InitialedLR IV : Bolus 500 16:14 03/07/2021 16:50 PetermL, then 150 mL/hr Jorge Hermosillo RN, M.D.;Morphine IVP 4 mg 16:14 03/07/2021 16:51 Alberto(HIGH ALERT Jorge Hermosillo RN 2 OrderSheet [facility] Emergency Department [address] [place] [address] Phone #: ext- [phone] 03/07/2021 14:41 Patient: JAILYN CALLOWAY Sex: M : 2000 Age: 21yMEDICATION) Wendy;Zofran 4 mg IVP X 1 16:14 03/07/2021 16:51 Peterdose: 4 mg (NOW Jorge Hermosillo RNx1Abilio Nguyen;GENERAL ORDERSOrder Description Priority Entered Acknowledged Initialed[Electronically signed by Alberto Treviño RN (19:38 03/07/2021)][Electronically signed by Jorge Hermosillo M.D. (20:33 03/07/2021)][Electronically locked by Alberto Treviño RN (19:38 03/07/2021)] Name Value Range Interpretation Code Description Data Jeannie rce(s) Supporting Document(s) ID Date Data Source [id number] 03/07/2021 02:42:00 PM EDT [facility] 1 Medication Reconciliation Report [facility] Emergency Department [address] [place] [address] Phone #: ext- [phone] 03/07/2021 14:41 Patient: JAILYN CALLOWAY Sex: M : 2000 Age: 21yWeight: 81.6 kgHeight/Length: 67 in.BMI: 28.2ALLERGIES: NoneThe patient's Home Medications are listed below:NONE.The source(s) of the original Home Medication information:Not obtained.The following Medications were given to the patient in the Emergency Department:LR [IV] IV Fluids bolus 500 mL over 20 minute(s), then 150 mL/hr, administered: 16:50 03/07/2021Zofran [IVP] IVP 4 mg, administered: 16:51 03/07/2021Morphine [IVP] IVP 4 mg, administered: 16:51 03/07/2021The following Medications were prescribed to the patient:Protonix 40 mg tablet,delayed release Take 1 tablet once a day for 30 days -- Dispense 30 tablet.Refills: 1. Substitution permitted.Pharmacy - [facility] - [address] [facility] ; [place] [address]. . -- Jorge Hermosillo M.D. Name Value Range Interpretation Code Description Data Jeannie rce(s) Supporting Document(s) ID Date Data Source [id number] 03/07/2021 02:42:00 PM EDT [facility] 1 Medication Administration Record [facility] Emergency Department [address] [place] [address] Phone #: ext- [phone] 03/07/2021 14:41 Patient: JAILYN CALLOWAY Sex: M : 2000 Age: 21yWeight: 81.6 kgHeight/Length: 67 inBMI: 28.2ALLERGIES: None Date/Time Medication Administered Medication OrderedStart LR [IV] LR IV : Bolus 500 mL, then 19450:50 03/07/2021 Dose: IV Fluids mL/hrPyessy Treviño RN Rate: 150 mL /hr over 3 hour(s)---- Bolus: 500 mL over 20 minute(s)Stop Dispensed: 1000 mL bag19:30 03/07/2021 Site: #1 left ACPyessy Treviño RNGiven MORPHINE [IVP] Morphine IVP 4 mg (HIGH ALERT16:51 03/07/2021 Dose: 4 mg IVP MEDICATION)Alberto Treviño RN Site: #1 left ACGiven ZOFRAN [IVP] (ONDANSETRON HCL) Zofran 4 mg IVP X 1 dose: 4 mg16:51 03/07/2021 Dose: 4 mg IVP (NOW x1)Alberto Treviño RN Site: #1 left AC Name Value Range Interpretation Code Description Data Jeannie rce(s) Supporting Document(s) ID Date Data Source [id number] 03/07/2021 02:42:00 PM EDT [facility] 1 General Instructions [facility] Emergency Department [address] [place] [address] Phone #: ext [phone] 03/07/2021 14:41 Patient: JAILYN CALLOWAY Sex: M : 2000 Age: 21yGastroesophageal reflux disease. No esophagitis.Chronic gastritis. No alcoholic gastritis or hemorrhagic gastritis.INSTRUCTIONSDrink plenty of fluids. Avoid alcohol and NSAIDS. NSAIDS include aspirin, ibuprofen (Advil) and naproxen(Aleve). Avoid fatty, fried/greasy, lactose-containing (such as milk, cheese and ice cream), salty and spicyfoods. No alcohol. Do not smoke.(PLEASE FOLLOW UP ON POST FOR GI REFERRAL IN NEXT WEEK;OR FOLLOW UP WITH OUR SURGEONS HERE AT [facility]).Warnings: Further evaluation is necessary (GI referral). It is very important to follow up with a healthcareprovider.GENERAL WARNINGS: Return or contact your physician immediately if your condition worsens orchanges unexpectedly, if not improving as expected, or if other problems arise. SPECIFICALLY, return ifyou develop pain in the abdomen, pelvis, testicle or back, fever, vomiting, the inability to keep fluids down,blood in vomitus, blood in diarrhea, fainting or lightheadedness.Your Current Medications: .No home medication.Prescription Medications:Protonix 40 mg tablet,delayed release Take 1 tablet once a day for 30 days -- Dispense 30 tablet.Refills: 1. Substitution permitted.Pharmacy - [facility] - [address] [facility] ; [place] [address]. .Follow-up:Return to the emergency department as needed. Follow up with a upscale security officer in seven days evenif well. Call for an appointment. Reason for referral: evaluation and treatment. Summary of care provided topatient via paper.Understanding of the discharge instructions verbalized by patient. Expected course of illness, dischargeinstructions, activity level, diet, prescriptions x1, follow-up appointment and risks and benefits of treatmentreviewed with patient and understanding verbalized. Agrees to plan of care.Follow-up with: [facility], , , [address] [place] [address], [id number] Follow up in five days if not better. Call for an appointment. Reason for referral: evaluation and treatment. 2 General Instructions [facility] Emergency Department [address] [place], [place] [address] Phone #: ext- [phone] 03/07/2021 14:41 Patient: JAILYN CALLOWAY Sex: M : 2000 Age: 21ySummary of care provided to patient via paper. ADDITIONAL INFORMATIONGastritis (Adult)Gastritis is inflammation and irritation of the stomach lining. You can have it for a short time (acute) gustavo long lasting (chronic). Infection with bacteria called H pylori most often causes gastritis. More thana third of people in the have these bacteria in their bodies. In many cases, H pylori causes noproblems or symptoms. In some people, though, the infection irritates the stomach lining and causesgastritis. H. pylori may be diagnosed through blood, stool, or breath tests, we well as through biopsyduring an endoscopy. Other causes of stomach irritation include drinking alcohol, smoking or chewingtobacco, or taking pain-relieving medicines called NSAIDs (such as aspirin or ibuprofen). Certaindrugs (such as cocaine) and immune conditions can also cause gastritis.Symptoms of gastritis can include: Belly pain or bloating Feeling full quickly Loss of appetite Nausea or vomiting 3 General Instructions [facility] Emergency Department [address] [place] [address] Phone #: ext- [phone] 03/07/2021 14:41 Patient: JAILYN CALLOWAY Adeel Sex: Sincere : 2000 Age: 21y Vomiting blood or having black stools Feeling more tired than usualAn inflamed and irritated stomach lining is more likely to develop a sore called an ulcer. To helpprevent this, gastritis should be treate d.Home careIf needed, our healthcare provider may prescribe medicines. If you have H pylori infection, treating itwill likely relieve your symptoms. Other changes can help reduce stomach irritation and help it heal. If you have been prescribed medicines for H pylori infection, take them as directed. Take all of the medicine until it is finished or your healthcare provider tells you to stop, even if you feel better. Your healthcare provider may advise you not to take NSAIDs. If you take daily aspirin for your heart or other medical reasons, do not stop without talking to your healthcare provider first. Don't drink alcohol. Stop smoking. Smoking can irritate the stomach and delay healing. As much as possible, stay away from second hand smoke.Follow-up careFollow up with your healthcare provider, or as advised by our staff. You may need testing to check forinflammation or an ulcer.When to seek medical adviceCall your healthcare provider for any of the following: Stomach pain that gets worse or moves to the lower right belly (appendix area) Chest pain that appears or gets worse, or spreads to the back, neck, shoulder, or arm Frequent vomiting (can't keep down liquids) Blood in the stool or vomit (red or black in color) Feeling weak or dizzy Shortness of breath Unexplained weight loss Fever of 100.4F (38C) or higher, or as directed by your healthcare provider 4 General Instructions [facility] Emergency Department [address] [place] [address] Phone #: ext- [phone] 03/07/2021 14:41 -- Patient: JAILYN CALLOWAY Sex: M : 2000 Age: 21y [phone] [employer]. [address] [place] [address]. All rights reserved. This information is not intended as asubstitute for professional medical care. Always follow your healthcare professional's instructions.GERD (Adult) The esophagus is a tube that carries food from the mouthto the stomach. A valve (the LES, lower esophageal sphincter) at the lower end of the esophagusprevents stomach acid from flowing upward. When this valve doesn't work properly, stomach contentsmay repeatedly flow back up (reflux) into the esophagus. This is called gastroesophageal refluxdisease (GERD). GERD can irritate the esophagus. It can cause problems with pain, swallowing orbreathing. In severe cases, GERD can cause recurrent pneumonia (from aspiration or breathing inparticles) or other serious problems.Symptoms of reflux include burning, pressure or sharp pain in the upper abdomen or mid to lowerchest. The pain can spread to the neck, back, or shoulder. There may be belching, an acid taste inthe back of the throat, chronic cough, or sore throat, or hoarseness. GERD symptoms often occurduring the day after a big meal. They can also occur at night when lying down.Home care 5 General Instructions [facility] Emergency Department [address] [place] [address] Phone #: ext- [phone] 03/07/2021 14:41 Patient: JAILYN CALLOWAY Sex: M : 2000 Age: 21yLifestyle changes can help reduce symptoms. If needed, your healthcare provider may prescribemedicines. Symptoms often improve with treatment, but if treatment is stopped, the symptoms oftenreturn after a few months. So most persons with GERD will need to continue treatment or gettreatment on and off.Lifestyle changes Limit or avoid fatty, fried, and spicy foods, as well as coffee, chocolate, mint, and foods with high acid content such as tomatoes and citrus fruit and juices (orange, grapefruit, lemon). Don't eat large meals, especially at night. Frequent, smaller meals are best. Don't lie down right after eating. And don't eat anything 3 hours before going to bed. Don't drink alcohol or smoke. As much as possible, stay away from second hand smoke. If you are overweight, losing weight will reduce symptoms. Don't wear tight clothing around your stomach area. If your symptoms occur during sleep, use a foam wedge to elevate your upper body (not just your head.) Or, place 4" blocks under the head of your bed. Or use 2 bed risers under your bedframe.MedicinesIf needed, medicines can help relieve the symptoms of GERD and prevent damage to the esophagus.Discuss a medi cine plan with your healthcare provider. This may include one or more of the followingmedicines: Antacids to help neutralize the normal acids in your stomach. Acid blockers (Histamine or H2 blockers) to decrease acid production. Acid inhibitors (proton pump inhibitors PPIs) to decrease acid production in a different way than the blockers. They may work better, but can take a little longer to take effect.Take an antacid 30 to 60 minutes after eating and at bedtime, but not at the same time as an acidblocker.Try not to take medicines such as ibuprofen and aspirin. If you are taking aspirin for your heart orother medical reasons, talk to your healthcare provider about stopping it.Follow-up careFollow up with your healthcare provider or as advised by our staff.When to seek medical advice 6 General I nstructions [facility] Emergency Department [address] [place] [address] Phone #: ext- [phone] 03/07/2021 14:41 Patient: JAILYN CALLOWAY Sex: M : 2000 Age: 21yCall your healthcare provider if any of the following occur: Stomach pain gets worse or moves to the lower right abdomen (appendix area) Chest pain appears or gets worse, or spreads to the back, neck, shoulder, or arm An [id number] trial of medicine doesn't relieve your symptoms Weight loss that can't be explained Trouble or pain swallowing Frequent vomiting (can't keep down liquids) Blood in the stool or vomit (red or black in color) Feeling weak or dizzy Fever of 100.4F (38C) or higher, or as directed by your healthcare provider [employer]. [address] [place] [address], [place] [address]. All rights reserved. This information is not intended as asubstitute for professional medical care. Always follow your healthcare professional's instructions. You have been given the following additional information: Gastritis (Adult) GERD (Adult)(Electronically signed by Jorge Hermosillo M.D. 03/07/2021 20:33) Name Value Range Interpretation Code Description Data Jeannie rce(s) Supporting Document(s) ID Date Data Source [id number] 03/07/2021 02:42:00 PM EDT [facility] 1 Clinical Report - Nurses [facility] Emergency Department [address] [place] [address] Phone #: ext- [phone] 03/07/2021 14:41 Patient: JAILYN CALLOWAY Sex: M : 2000 Age: 21yTRIAGEArrived by private vehicle. Historian: patient. Accompanied by friend. ( right upper quad constant painfor 4 months, last week seen on post and palpated left quad had pain, today the nurse stated that the rightupper quad was larger has not had any tests done).Acuity: LEVEL 3.Chief Complaint: ABDOMINAL PAIN and VOMITING.Alert.Onset. (4 months). He has had abdominal pain. The pain is described as located in the RUQ. ( last bmfriday, pain increases with running and eating greasy and fried foods still has his gallbladder).Treatment HIV COUNSELOR:None.SEPSIS SCREEN: SIRS SCREEN NEGATIVE. SEPSIS SCREEN NEGATIVE. No suspected or confirmedsigns of infection present. --14:49 03/07/21 Madonna Rick R.N.14:42 03/07/21. BP: 127/84. MAP: 98. HR: 81. RR: 16. O2 saturation: 95%. Temp: 98.2 F. Pain level now:11/22. --14:49 03/07/21 Madonna Rick R.N.Weight: 81.6 kg stated. Height/Length: 67 inches Per Patient. BMI: 28.2. --14:42 03/07/21 Madonna Rick R.N.MedicationsNone. --14:45 03/07/21 Madonna Rick R.N.AllergiesNone. --14:45 03/07/21 Madonna Rick R.N.PROBLEMS:COVID-19. --14:47 03/07/21 Madonna Rick R.N.ADDITIONAL SURGERIES:no known surgeries.HistoryPAST MEDICAL HX: Immunizations: up-to-date.SOCIAL HX: Smoker- current status unknown (vape). Occasional alcohol use. No drug use. No recenttravel. No known contact with a sick individual. He was offered HIV testing but declined and hepatitis Ctesting but declined. He has not traveled outside the [place] 2 Clinical Report - Nurses [facility] Emergency Department [address] [place] [address] Phone #: ext- [phone] 03/07/2021 14:41 Patient: JAILYN CALLOWAY Sex: M : 2000 Age: 21y Infectious disease exposure: No infectious disease exposure. The patient was not exposed to Coronavirus. (is covid vaccinated). Patient is not a known carrier of tuberculosis, hepatitis, HIV, MRSA or VRE. Patient is not a known carrier of CRE. SELF HARM ASSESSMENT: Self harm assessment was performed. The patient a nswered "no" to the question(s) "Have you recently felt down, depressed, or hopeless?" and "Do you have thoughts of harming or killing yourself?". ABUSE ASSESSMENT: Abuse assessment. Abuse denied. No suspicion of abuse. No report of abuse. NUTRITIONAL RISK ASSESSMENT: The nutritional risk assessment revealed no deficiencies. FUNCTIONAL ASSESSMENT: Functional assessment: no impairments noted. LEARNING NEEDS ASSESSMENT: The learning needs assessment revealed no barriers. FALL RISK ASSESSMENT: Fall risk assessment completed. No risk factors identified. SKIN INTEGRITY ASSESSMENT: Skin integrity risk assessment completed. No skin integrity risk identified. --14:49 03/07/21 Madonna Rick R.N. Interventions Identification band on patient. To treatment room. --14:49 03/07/21 Madonna Rick R.N.PHYSICAL ASSESSMENTAmbulatory to room.GENERAL / NEURO / PSYCH: Alert. Oriented X 4. Appears in pain.HEENT: Mucous membranes are pink.RESPIRATORY: Respirations not labored. Breath sounds within normal limits.CVS: Normal sinus rhythm noted. Capillary refill less than 2 seconds.GI / : The patient has had nausea. Emesis noted. Abdomen soft. Abdominal tenderness in the rightupper quadrant. Bowel sounds within normal limits.SKIN: Skin is warm and dry. --15:53 03/07/21 Alberto Treviño RN.NURSING PROGRESS NOTESPatient ID band checked for patient name and birthdate: patient confirmed. Instructions provided to collectclean catch urine and patient verbalized understanding. Clean catch urine collected; sample sent to lab forurinalysis. Specimen labeled in the presence of the patient. --15:07 03/07/21 Madonna Rick R.N. Patient gowned. Reassurance given. Two patient identifiers checked. Call light placed in reach. Side rails up x 2. Bed placed in lowest position. Brakes of bed on. Patient ready for evaluation. --15:50 03/07/21 Madonna Rick R.N. 15:58 03/07/2021 Site #1 started via IV in the left antecubital space with an 20g angiocath, with aseptic 3 Clinical Report - Nurses [facility] Emergency Department [address] [place] [address] Phone #: ext- [phone] 03/07/2021 14:41 Patient: JAILYN CALLOWAY Sex: M : 2000 Age: 21y technique and good blood return; one attempt. Saline lock flushed with 10 mL saline. --15:58 03/07/21 Alberto Treviño RN 16:14 03/07/21. BP: 137/76. MAP: 96. HR: 64. RR: 15. O2 saturation: 98%. Temp: 98.4 F. --16:15 03/07/21 Jesus Sarah 16:50 03/07/2021 Started bag #1 1000 mL IV Fluids LR; bolus of 500 mL over 20 minute(s) then at 150 mL/hr over 3 hour(s) via site #1 via IV pump. Allergies verified and confirmed 5 rights. IV patency established. IV site checked: no pain, redness, or swelling. IV flushed thoroughly pre- and post-medication administration. Information reviewed with patient including reason for taking this medication. Verbalizes understanding. --16:50 03/07/21 Alberto Treviño RN 16:51 03/07/2021 Zofran (Ondansetron HCl) IVP 4 mg given over 2 minute(s) via site #1. Allergies verified and confirmed 5 rights. IV patency established. IV site checked: no pain, redness, or swelling. IV flushed thoroughly pre- and post-medication administration. IVP given by RN. Information reviewed with patient including reason for taking this medication. Verbalizes understanding. --16:51 03/07/21 Alberto Treviño RN 16:51 03/07/2021 Morphine IVP 4 mg given over 3 minute(s) via site #1. Allergies verified and confirmed 5 rights. IV patency established. IV site checked: no pain, redness, or swelling. IV flushed thoroughly pre- and post-medication administration. IVP given by RN. Information reviewed with patient including reason for taking this medication and sedative warning. Verbalizes understanding. --16:51 03/07/21 Alberto Treviño RN 17:32 03/07/21. BP: 121/74. MAP: 89. HR: 70. RR: 16. O2 saturation: 97%. Temp: 98.7 F. --17:33 03/07/21 Jesus Sarah 18:00 03/07/21. BP: 121/67. MAP: 85. HR: 68. RR: 18. O2 saturation: 96%. --18:11 03/07/21 [facility]WH[facility] Tech 19:10 03/07/21. BP: 102/63. MAP: 76. HR: 73. RR: 15. O2 saturation: 98%. --19:11 03/07/21 Jesus Sarah 19:30 03/07/2021 Site #1 removed upon discharge. Catheter intact. Manual pressure and bandage applied. --19:30 03/07/21 Alberto Treviño RN 19:30 03/07/2021 IV Fluids LR via IV site #1 Discontinued: STOPPED upon discharge. Total amount infused: 850 mL. IV patency established. IV site checked: no pain, redness, or swelling. IV flushed thoroughly. --19:30 03/07/21 Alberto Treviño RN.DISPOSITION / DISCHARGE Condition at departure: improved and stable. Discharge instructions provided and reviewed with the patient. Reviewed medication(s) side effects, precautions, dosing and course information. Prescription(s) sent electronically to pharmacy. Reviewed referral to a upscale security officer. Patient verbalized understanding. Written instructions provided in Lao. The patient was discharged by the physician. 4 Clinical Report - Nurses [facility] Emergency Department [address] [place] [address] Phone #: ext- [phone] 03/07/2021 14:41 Patient: JAILYN CALLOWAY Sex: M : 2000 Age: 21y He was discharged home and accompanied by flow manager. He left ambulatory and via private vehicle. Glazing Superintendent driving. --19:38 03/07/21 Alberto Treviño RN 19:31 03/07/21. BP: 102/63. MAP: 76. HR: 56. RR: 16. O2 saturation: 100%. Pain level now: 09/22. --19:38 03/07/21 Alberto Treviño RN.Locked/Released at 03/07/2021 19:38 by Alberto Treviño RN Name Value Range Interpretation Code Description Data Jeannie rce(s) Supporting Document(s) ID Date Data Source [id number] 03/07/2021 02:42:00 PM EDT [facility] 1 Clinical Report - Physicians/Mid Levels [facility] Emergency Department [address] [place] [address] Phone #: ext- [phone] 03/07/2021 14:41 Patient: JAILYN CALLOWAY Sex: M : 2000 Age: 21y Time Seen: 15:25 03/07/2021; initial patient contact. Arrived- By private vehicle. Historian- patient. Disposition decision: 19:30 03/07/2021.HISTORY OF PRESENT ILLNESS Chief Complaint: ABDOMINAL PAIN. This started 4 months ago and is still present and now worse. (today). It has been intermittent and waxing/waning. It is described as "pain" and dull. No radiation. It is described as located in the right upper quadrant and epigastric area. At its maximum, severity described as severe and 8 / 10. When seen in the E.D., severity described as moderate and 5 / 10. Modifying factors- worsened by movement and food. Relieved by rest. Not relieved by anything. The patient has had nausea. No loss of appetite or diarrhea. He has had vomiting (today). The vomiting has occurred only once. 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 No recent travel. Similar symptoms previously. Patient has had similar symptoms many times. Recent medical care: Not recently seen/assessed.REVIEW OF SYSTEMSNo constipation, black stools, hematemesis, difficulty with urination or pain with urination. No urinaryfrequency, bloody stools, fever, headache or sore throat. No blurred vision, chest pain, difficulty breathing,cough or joint pain. No skin rash, chills or back pain. The patient has not had weight loss.PAST HISTORYSee nurses notes. Problems: Gastroesophageal Reflux Disease. COVID-19. Additional Surgeries: no known surgeries. Medications: None. 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 Occasional alcohol use. No drug use. 2 Clinical Report - Physicians/Mid Levels [facility] Emergency Department [address] [place] [address] Phone #: ext- [phone] 03/07/2021 14:41 Patient: JAILYN CALLOWAY Sex: M : 2000 Age: 21yADDITIONAL NOTESThe nursing notes have been reviewed with agreement regarding the chief complaint, HPI, ROS, PMH andpatient medications and allergies.PHYSICAL EXAMVital Signs: 03/07/2021 16:14 BP: 137/76. MAP: 96. HR: 64. RR: 15. O2 saturation: 98%. Temp: 98.4 F.03/07/2021 14:42 BP: 127/84. MAP: 98. HR: 81. RR: 16. O2 saturation: 95%. Temp: 98.2 F. Pain levelnow: 5/10. Have been reviewed. Oxygen saturation normal.Appearance: Alert. Oriented X3. No acute distress.Eyes: Pupils equal, round and reactive to light. Eyes normal inspection.ENT: Nose normal. Pharynx normal.Neck: Normal inspection. Neck supple.CVS: Normal heart rate and rhythm. Heart sounds normal. Pulses normal.Respiratory: No respiratory distress. Painless inspiration. Breath sounds normal. Chest nontender.Abdomen: Soft. Mild tenderness in the right upper quadrant and epigastric area. No guarding or reboundtenderness. Bowel sounds normal. No organomegaly. No mass. Femoral pulses equal.Back: Normal inspection. No CVA tenderness.Skin: Skin warm and dry. Normal skin color. No rash. Normal skin turgor.Extremities: Extremities exhibit normal ROM. No lower extremity edema.Neuro: Oriented X 3. No motor deficit. No sensory deficit.LABS, X-RAYS, AND EKGAbdominal Sonogram: Normal stud y. The gallbladder is normal. Study included the gallbladder. Thestudy was interpreted by the radiologist. Interpretation time: 17:03 03/07/2021.Laboratory Tests: Laboratory tests have been ordered, with results reviewed and considered in themedical decision making process. US Gall Bladder: (CORKY: 03/07/2021 16:14) ( MsgRcvd 03/07/2021 19:10) In Progress US GALLBLADDER Reason(s): RUQ Pain TRANSPORTATION: IV? O2? Oxygen?(No) Room: ED Exam US GALLBLADDER [facility] [address] [place] [address] PHONE: [phone] FAX: [phone] Name .................. : ELLI Denis Acct Number.................. : [id number] ROOM. ................. : VT-13 Number ................... : [id number] Stay type ............. : E/R Discharge Date......... ... : Admit Date ......... : 03/07/21 Admit Phys ............ ........ : BAY NEAL Date of ....... : 2000 Family Phys ................... : UNKNOWN ZANE Phone .................. : [phone] Age ................................ : 21 Film# .................. .:[id number] Sex ................................. : M Unsigned transcriptions are preliminary reports and do not represent a medical or legal document GALLBLADDER [id number] COMPLETE:03/07/21 18:51 MWB [id number] Reason(s): RUQ Pain 3 Clinical Report - Physicians/Mid Levels [facility] Emergency Department [address] [place] [address] Phone #: ext- [phone] 03/07/2021 14:41 Patient: JAILYN CALLOWAY Sex: M : 2000 Age: 21y ULTRASOUND RIGHT UPPER QUADRANT INDICATION: Right upper quadrant pain COMPARISON: None FINDINGS: LIVER: Normal echogenicity. No focal lesions identified. GALLBLADDER/BILIARY: No gallstones or gallbladder wall thickening. No pericholecystic fluid. The bile ducts are non-dilated. Common duct diameter 2.6 mm. PANCREAS: Not optimally seen due to overlying bowel gas. Visualized portions are unremarkable. RIGHT KIDNEY: Length 11.1 cm. Normal cortical thickness and echogenicity. No hydronephrosis, stones or masses. IMPRESSION: Negative study. Electronically Reviewed and Signed By ELMA SIGNDADERICK, AURELIANO Transcribe Initials: STUART , Transcribe Date: 03/07/21 19:09, Dictation Date: <<REPDIST>> Page 1 of ALO ugarte Diff: (CORKY: 03/07/2021 15:26) ( [facility] 03/07/2021 15:36) Final results Test Result Flag Units (Reference) CBC W/AUTOMATED DIFF COMPLETE BLOOD COUNT WBC 7.4 10/uL (4.2 - 11.0) RBC 4.91 10/uL (4.50 - 6.30) HEMOGLOBIN 15.1 g/dL (14.0 - 16.0) HEMATOCRIT 44.0 % (41.0 - 51.0) MCV 89.6 fL (80.0 - 94.0) MCH 30.8 pg (27.0 - 34.0) MCHC 34.3 g/dL (31.0 - 36.0) RDW 12.9 % (11.5 - 14.8) PLATELETS 306 10/uL (150 - 450) MPV 9.8 fL (7.4 - 10.4) NEUT 56.8 % (37.0 - 80.0) LYMPH 29.3 % (25.0 - 40.0) MONO 10.3 H % (3.0 - 8.0) EOS 3.0 % (0.0 - 7.0) BASO 0.3 % (0.0 - 2.0) %IG 0.3 H % (0.0 - 0.0) 4 Clinical Report - Physicians/Mid Levels [facility] Emergency Department [address] [place] [address] Phone #: ext- [phone] 03/07/2021 14:41 Patient: JAILYN CALLOWAY Sex: M : 2000 Age: 21y %NRBC 0.0 % (0.0 - 0.0) #NEUT 4.18 10/uL (2.00 - 6.90) #LYMPH 2.15 10/uL (0.60 - 3.40) #MONO 0.76 10/uL (0.00 - 0.90) #EOS 0.22 10/uL (0.00 - 0.70) #BASO 0.02 10/uL (0.00 - 0.20) #IG 0.02 10/uL (0.00 - 0.10) #NRBC 0.00 10/uL (0.00 - 0.00) MANUAL DIFF NOT INDICATED RBC MORPH NOT INDICATEDCMP: (CORKY: 03/07/2021 15:26) ( MsgRcvd 03/07/2021 16:12) Final results Test Result Flag Units (Reference) COMPREHENSIVE METABOLIC PANEL COMPREHENSIVE METABOLIC PANEL SODIUM 142 mEq/L (134 - 153) POTASSIUM 4.7 mEq/L (3.6 - 5.0) CHLORIDE 104 mEq/L (98 - 107) CO2 27 MEQ/L (22 - 30) GLUCOSE 98 MG/DL (70 - 99) BUN 19 MG/DL (7 - 21) CREATININE 1.2 MG/DL (0.7 - 1.5) BUN/CREAT 16 (8 - 27) TOTAL PROTEIN 7.7 G/DL (6.3 - 8.2) ALBUMIN 5.0 G/DL (3.9 - 5.0) GLOBULIN 2.7 GM/DL (2.4 - 3.2) A/G RATIO 1.9 (0.8 - 2.0) CALCIUM 10.2 MG/DL (8.4 - 10.2) TOTAL BILI <0.7 MG/DL (0.2 - 1.3) ALKALINE PHOS 54 U/L (38 - 126) SGOT/AST 17 U/L (5 - 40) SGPT/ALT 13 U/L (7 - 56) ANION GAP 11.0 mmol/L (8.0 - 16.0) AGE 21 yrs NON-AA GFR >60 mL/min AFR AMER GFR >60 mL/min Male GFR Interprentation 20-49 yrs >60 mL/min Jrccsh48-15 yrs >56 mL/min Normal 60-69 yrs >49 mL/min Normal 70-79yrs>42 mL/min Normal 80 and above >35 mL/min Normal Female GFRInterpretation 20-39 yrs >60 mL/min Normal 40-49 yrs >58 mL/minNormal 50-59 yrs >51 mL/min Normal 60-69 yrs >45 mL/min Xoksze61-40 yrs >39 mL/min Normal 80 and above >32 mL/min NormalLipase: (CORKY: 03/07/2021 15:26) ( [facility] 03/07/2021 16:12) Final results Test Result Flag Units (Reference) LIPASE 29 U/L (13 - 60)Lactic Acid: (CORKY: 03/07/2021 15:26) ( [facility] 03/07/2021 15:57) Final results Test Result Flag Units (Reference) LACTIC ACID 2.1 MMOL/L (0.2 - 2.2)Urinalysis: (CORKY: 03/07/2021 14:55) ( [facility] 03/07/2021 15:36) Final results Test Result Flag Units (Reference) URINALYSIS URINALYSIS 5 Clinical Report - Physicians/Mid Levels [facility] Emergency Department [address] [place] [address] Phone #: ext- [phone] 03/07/2021 14:41 Patient: JAILYN CALLOWAY Sex: M : 2000 Age: 21y SOURCE R COLOR yellow (NORMAL: Yello CLARITY clear (NORMAL: Clear SPEC GRAVITY 1.025 (1.001 - 1.030 pH 5 (5 - 9) GLUCOSE NORM (NORMAL: Negat BILIRUBIN NEG (NORMAL: Negat KETONE NEG (NORMAL: Negat PROTEIN NEG (NORMAL: Negat NITRITE NEG (NORMAL: Negat BLOOD NEG (NORMAL: Negat LEUK EST NEG (NORMAL: Negat UROBILINOGEN 1 (less than 1.0 MICROSCOPIC Not Indicate.PROGRESS AND PROCEDURESCourse of Care: 17:03 03/07/21. workup all in and reviewed and nml, incl. WBC, liver enzymes, lipase,lactic; waiting for GB US 19:28 03/07/21. GB US is nml; pt has probably GERD vs gastritis; feeling better; will treat accordingly; advised to f/u on post for GI referral in near future; will also refer to surgery here at [facility]; pt understands d/c instructions. Daughter counseled in person regarding the patient's stable condition, test results, diagnosis and need for follow-up. Daughter agrees with plan of care. Disposition: Condition: good and stable. Discharge decision based on the following: patient's condition is stable; patient's condition is improved; patient is ambulatory; patient is active; patient drinking fluids; patient eating; patient's pain is controlled; patient's exam is improved; no abnormal test results; multiple repeat evaluations; social support is good; transportation is available; follow-up is available; clinical impression is consistent with outpatient treatment.CLINICAL IMPRESSION Gastroesophageal reflux disease. No esophagitis. Chronic gastritis. No alcoholic gastritis or hemorrhagic gastritis.INSTRUCTIONS Drink plenty of fluids. Avoid alcohol and NSAIDS. NSAIDS include aspirin, ibuprofen (Advil) and naproxen (Aleve). Avoid fatty, fried/greasy, lactose-containing (such as milk, cheese and ice cream), salty and spicy foods. No alcohol. Do not smoke. (PLEASE FOLLOW UP ON POST FOR GI REFERRAL IN NEXT WEEK; OR FOLLOW UP WITH OUR SURGEONS HERE AT [facility]). 6 Clinical Report - Physicians/Mid Levels [facility] Emergency Department [address] [place] [address] Phone #: ext- [phone] 03/07/2021 14:41 Patient: JAILYN CALLOWAY Sex: M : 2000 Age: 21y Warnings: Further evaluation is necessary (GI referral). It is very important to follow up with a healthcare provider. GENERAL WARNINGS: Return or contact your physician immediately if your condition worsens or changes unexpectedly, if not improving as expected, or if other problems arise. SPECIFICALLY, return if you develop pain in the abdomen, pelvis, testicle or back, fever, vomiting, the inability to keep fluids down, blood in vomitus, blood in diarrhea, fainting or lightheadedness. Your Current Medications: . No home medication. Prescription Medications: Protonix 40 mg tablet,delayed release Take 1 tablet once a day for 30 days -- Dispense 30 tablet. Refills: 1. Substitution permitted. Pharmacy - [facility] - [id number] [facility] ; [place] [address]. . Follow-up: Return to the emergency department as needed. Follow up with a upscale security officer in seven days even if well. Call for an appointment. Reason for referral: evaluation and treatment. Summary of care provided to patient via paper. Understanding of the discharge instructions verbalized by patient. Expected course of illness, discharge instructions, activity level, diet, prescriptions x1, follow-up appointment and risks and benefits of treatment reviewed with patient and understanding verbalized. Agrees to plan of care. Follow-up with: [facility], , , [address] [place] [address], [address] Follow up in five days if not better. Call for an appointment. Reason for referral: evaluation and treatment. Summary of care provided to patient via paper.(Electronically signed by Jorge Hermosillo M.D. 03/07/2021 20:33) Name Value Range Interpretation Code Description Data Jeannie rce(s) Supporting Document(s) ID Date Data Source [id number] 03/07/2021 07:39:00 PM EDT [address] [address] PHONE: [phone] FAX: [phone] Name .................. : ELLI Denis Acct Number.................. : [id number] ROOM. ................. : VT-13 Number ................... : [id number] Stay type ............. : E/R Discharge Date......... ... : Admit Date ......... : 0 03/07/21 Admit Phys .................... : BAY NEAL Date of ....... : 2000 Family Phys ................... : UNKNOWN ZANE Phone .................. : [phone] Age ................................ : 21 Film# .................. .:[id number] Sex ................................. : M Unsigned transcriptions are preliminary reports and do not represent a medical or legal document GALLBLADDER [id number] COMPLETE:03/07/21 18:51 MWB [id number] Reason(s): RUQ Pain ULTRASOUND RIGHT UPPER QUADRANT INDICATION: Right upper quadrant pain COMPARISON: None FINDINGS: LIVER: Normal echogenicity. No focal lesions identified. GALLBLADDER/BILIARY: No gallstones or gallbladder wall thickening. No pericholecystic fluid. The bile ducts are non-dilated. Common duct diameter 2.6 mm. PANCREAS: Not optimally seen due to overlying bowel gas. Visualized portions are unremarkable. RIGHT KIDNEY: Length 11.1 cm. Normal cortical thickness and echogenicity. No hydronephrosis, stones or masses. IMPRESSION: Negative study. Electronically Reviewed and Signed By Reji Moore MD , 03/07/21 19:39, JWS Transcribe Initials: STUART , Transcribe Date: 03/07/21 19:09, Dictation Date: Copy for: 010 EMERGENCY SRV Copy for: [place]PT [place] [facility] Copy for: [facility] REC Page 1 of 1 Name Value Range Interpretation Code Description Data Jeannie rce(s) Supporting Document(s) ID Date Data Source [id number] 03/07/2021 04:12:00 PM EDT [facility] Name Value Range Interpretation Code Description Data Jeannie rce(s) Supporting Document(s) Lipase [Enzymatic activity/volume] in Serum or Plasma 29 U/L 13 - 60 [facility] ID Date Data Source [id number] 03/07/2021 04:12:00 PM EDT [facility] Name Value Range Interpretation Code Description Data Jeannie rce(s) Supporting Document(s) COMPREHENSIVE METABOLIC PANEL [facility] COMPREHENSIVE METABOLIC PANEL Sodium [Moles/volume] in Serum or Plasma 142 mEq/L 134 - 153 [facility] Potassium [Moles/volume] in Serum or Plasma 4.7 mEq/L 3.6 - 5.0 [facility] Chloride [Moles/volume] in Serum or Plasma 104 mEq/L 98 - 107 [facility] Carbon dioxide, total [Moles/volume] in Serum or Plasma 27 MEQ/L 22 - 30 [facility] Glucose [Mass/volume] in Serum or Plasma 98 MG/DL 70 - 99 [facility] BUN 19 MG/DL 7 - 21 [facility] Creatinine [Mass/volume] in Serum or Plasma 1.2 MG/DL 0.7 - 1.5 [facility] BUN/CREAT 16 8 - 27 [facility] Protein [Mass/volume] in Serum or Plasma 7.7 G/DL 6.3 - 8.2 [facility] Albumin [Mass/volume] in Serum or Plasma 5.0 G/DL 3.9 - 5.0 [facility] Globulin [Mass/volume] in Serum by calculation 2.7 GM/DL 2.4 - 3.2 [facility] A/G RATIO 1.9 0.8 - 2.0 [facility] Calcium [Mass/volume] in Serum or Plasma 10.2 MG/DL 8.4 - 10.2 [facility] Bilirubin.total [Mass/volume] in Serum or Plasma <0.7 MG/DL 0.2 - 1.3 [facility] Alkaline phosphatase [Enzymatic activity/volume] in Serum or Plasma 54 U/L 38 - 126 [facility] Aspartate aminotransferase [Enzymatic activity/volume] in Serum or Plasma 17 U/L 5 - 40 [facility] Alanine aminotransferase [Enzymatic activity/volume] in Seru m or Plasma 13 U/L 7 - 56 [facility] Anion gap 3 in Serum or Plasma 11.0 mmol/L 8.0 - 16.0 [facility] AGE 21 yrs [facility] NON-AA GFR >60 mL/min [facility] Hosp ital AFR AMER GFR >60 mL/min [facility] Ho spital Male GFR In terprentation 20-49 yrs >60 mL/min Normal 50-59 yrs >56 mL/min Normal 60-69 yrs >49 mL/min Normal 70-79yrs >42 mL/min Normal 80 and above >35 mL/min Normal Female GFR Interpretation 20-39 yrs >60 mL/min Normal 40-49 yrs >58 mL/min Normal 50-59 yrs >51 mL/min Normal 60-69 yrs >45 mL/min Normal 70-79 yrs >39 mL/min Normal 80 and above >32 mL/min Normal ID Date Data Source [id number] 03/07/2021 03:57:00 PM EDT [facility] Name Value Range Interpretation Code Description Data Jeannie rce(s) Supporting Document(s) Lactate [Moles/volume] in Serum or Plasma 2.1 MMOL/L 0.2 - 2.2 [facility] ID Date Data Source [id number] 03/07/2021 03:36:00 PM EDT [facility] Name Value Range Interpretation Code Description Data Jeannie rce(s) Supporting Document(s) CBC W/AUTOMATED DIFF [facility] COMPLETE BLOOD COUNT Leukocytes [#/volume] in Blood by Automated count 7.4 10^3/uL 4.2 - 1 1.0 [facility] Erythrocytes [#/volume] in Blood by Automated count 4.91 10^6/uL 4. 50 - 6.30 [facility] Hemoglobin [Mass/volume] in Blood 15.1 g/dL 14.0 - 16.0 [facility] Hematocrit [Volume Fraction] of Blood by Automated count 44.0 % 4 1.0 - 51.0 [facility] Erythrocyte mean corpuscular volume [Entitic volume] by Auto mated count 89.6 fL 80.0 - 94.0 [facility] Erythrocyte mean corpuscular hemoglobin [Entitic mass] by Automated count 30.8 pg 27.0 - 34.0 [facility] Erythrocyte mean corpuscular hemoglobin concentration [Mass/volume] by Automated count 34.3 g/dL 31.0 - 36.0 [facility] Erythrocyte distribution width [Ratio] by Automated count 12.9 % 11.5 - 14.8 [facility] Platelets [#/volume] in Blood by Automated count 306 10^3/uL 150 - 45 0 [facility] Platelet mean volume [Entitic volume] in Blood by Automated count 9.8 fL 7.4 - 10.4 [facility] Neutrophils/100 leukocytes in Blood by Automated count 56.8 % 37. 0 - 80.0 [facility] Lymphocytes/100 leukocytes in Blood by Manual count 29.3 % 25.0 - 40.0 [facility] Monocytes/100 leukocytes in Blood by Automated count 10.3 % 3.0 - 8.0 H [facility] Eosinophils/100 leukocytes in Blood by Automated count 3.0 % 0.0 - 7.0 [facility] Basophils/100 leukocytes in Blood by Automated count 0.3 % 0.0 - 2.0 [facility] %IG 0.3 % 0.0 - 0.0 H [facility] al %NRBC 0.0 % 0.0 - 0.0 [facility] al Neutrophils [#/volume] in Blood by Automated count 4.18 10^3/uL 2.00 - 6.90 [facility] Lymphocytes [#/volume] in Blood by Automated count 2.15 10^3/uL 0.60 - 3.40 [facility] Monocytes [#/volume] in Blood by Automated count 0.76 10^3/uL 0.00 - 0.90 [facility] Eosinophils [#/volume] in Blood by Automated count 0.22 10^3/uL 0.00 - 0.70 [facility] Basophils [#/volume] in Blood by Automated count 0.02 10^3/uL 0.00 - 0.20 [facility] #IG 0.02 10^3/uL 0.00 - 0.10 [facility] H ospital #NRBC 0.00 10^3/uL 0.00 - 0.00 [facility] ospital MANUAL DIFF NOT INDICATED [facility] RBC MORPH NOT INDICATED [facility] Ho spital ID Date Data Source [id number] 03/07/2021 03:35:00 PM EDT [facility] Name Value Range Interpretation Code Description Data Jeannie rce(s) Supporting Document(s) URINALYSIS [facility] Hos[facility] eun URINALYSIS SOURCE R [facility] COLOR yellow NORMAL: Yellow [facility] ospital CLARITY clear NORMAL: Clear [facility] Ho spital Specific gravity of Urine by Test strip 1.025 1.001 - 1.030 [facility] 5 5 - [facility] Glucose [Mass/volume] in Urine by Test strip NORM NORMAL: Negat [facility] Bilirubin.total [Presence] in Urine by Test strip NEG NORMAL: Negative [facility] Ketones [Presence] in Urine by Test strip NEG NORMAL: Negative [facility] Protein [Mass/volume] in Urine by Test strip [facility] N[facility] [Presence] in Urine by Test strip NEG NORMAL: Negative [facility] BLOOD NEG NORMAL: Negative [facility] LEUK EST NEG NORMAL: Negative [facility] Urobilinogen [Mass/volume] in Urine by Test strip 1 less valentina n 1.0 mg/dL [facility] MICROSCOPIC Not Indicate [facility] ospital ID Date Data Source [id number] 05/03/2020 10:10:00 AM EDT [facility] [address] [place] [address] PHONE: [phone] FAX: [phone] Name .................. : ELLI Denis Acct Number.................. : [id number] ROOM. ................. : MR Number ................... : [id number] Stay type ............. : O/P Discharge Date......... ... : 04/28/20 Admit Date ......... : 04/28/20 Admit Phys .................... : NATY AB Date of ....... : 2000 Family Phys ................... : UNKNOWN ZANE Phone .................. : [phone] Age ................................ : 20 Film# .................. .:[id number] Sex ................................. : M Unsigned transcriptions are preliminary reports and do not represent a medical or legal document MRI LOWER EXT ANY JT W CONT [id number] COMPLETE:04/28/20 15:32 [facility] [id number] (REASON FOR PROCESS: CHRONIC ATRAUMATIC L HIP PAIN MRI OF THE LEFT HIP: FINDINGS: Fracture, destructive osseous lesion or osteonecrosis is not identified. A labral tear is not identified. In the superior labrum on fat-saturated T2 coronal imaging and fat-saturated T1 coronal imaging, there are two foci of increased signal that suggest some type of intrasubstance degeneration within the superior labrum. Musculotendinous disruption is not seen. Intra-articular loose body is not identified. There is no abnormal bursal fluid collection. 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 Labral tear/disruption not seen. Otherwise, MR arthrogram of the left hip. Electronically Reviewed and Signed By Sivakumar Vera MD , 05/03/20 10:10, KGG Transcribe Initials: DZ , Transcribe Date: 04/29/20 03:11, Dictation Date: Copy for: NATY CH Copy for: [facility] REC Page 1 of 1 Name Value Range Interpretation Code Description Data Jeannie rce(s) Supporting Document(s) ID Date Data Source [id number] 04/30/2020 09:08:00 AM EDT [facility] [address] [place] [address] PHONE: [phone] FAX: [phone] Name .................. : ELLI Denis Acct Number.................. : [id number] ROOM. ................. : Number ................... : [id number] Stay type ............. : O/P Discharge Date......... ... : 04/28/20 Admit Date ......... : 04/28/20 Admit Phys .................... : NATY MADSEN Date of ....... : 2000 Family Phys ................... : UNKNOWN ZANE Phone .................. : [phone] Age ................................ : 20 Film# .................. .:[id number] Sex ................................. : M Unsigned transcriptions are preliminary reports and do not represent a medical or legal document INJECTION FOR HIP ARTHROGRAM [id number] COMPLETE:04/28/20 14:17 FAITH 39502 REASON FOR EXAM: CH[place] [id number] COMPLETE:04/28/20 14:17 FAITH 43763 (REASON FOR PELVIS: CHRONIC ATRAUMATIC L HIP PAIN FLUOROSCOPIC EXAMINATION OF THE LEFT HIP FOR ARTHROGRAM: HISTORY: Chronic atraumatic left hip pain. 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 PROCEDURE: The benefits and risks of the examination were discussed with the patient. The patient has given informed consent for the procedure. A time out was performed confirming the left hip is the proper hip for today's examination. The skin surface was marked using fluoroscopic guidance. The skin was prepped and dressed in normal sterile fashion. Superficial and deep Lidocaine administration was performed with a 25-gauge needle. A 22- gauge spinal needle was then placed and advanced under fluoroscopic guidance. The needle was passed into the joint space at which time iodinated contrast was administered to confirm proper placement. Approximately 5 cc of iodinated contrast was administered. Once the proper placement was confirmed, approximately 10 cc of 1:200 Gadolinium solution was administered. The needle was then removed. The skin was cleansed and bandaged. No complications were experienced during the procedure. 3 seconds of fluoroscopy time was utilized and 3 images were obtained. Examination dictated by RADHIKA Lucio. Examination was reviewed with Antonio Craig MD, radiologist at the time of this dictation. Page 1 of 2 [place] [address] PHONE: [phone] FAX: [phone] Name .................. : ELLI GLASER Adeel Acct Number.................. : [id number] ROOM. ................. : MR Number ................... : [id number] Stay type ............. : O/P Discharge Date......... ... : 04/28/20 Admit Date ......... : 04/28/20 Admit Phys .................... : NATY MADSEN Date of ....... : 2000 Family Phys ................... : UNKNOWN ZANE Phone .................. : [phone] Age .......... ...................... : 20 Film# .................. .:[id number] Sex ................................. : M Unsigned transcriptions are preliminary reports and do not represent a medical or legal document INJECTION FOR HIP ARTHROGRAM [id number] COMPLETE:04/28/20 14:17 FAITH 78823 REASON FOR EXAM: [place] [id number] COMPLETE:04/28/20 14:17 FAITH 21698 (REASON FOR PELVIS: CHRONIC ATRAUMATIC L HIP PAIN Electronically Reviewed and Signed By Vic Craig MD , 04/30/20 09:08, TDS Transcribe Initials: STUART , Transcribe Date: 04/28/20 15:47, Dictation Date: Copy for: NATY BRANDI CH Copy for: [facility] REC Page 2 of 2 Name Value Range Interpretation Code Description Data Jeannie rce(s) Supporting Document(s) ID Date Data Source [id number] 04/30/2020 09:08:00 AM EDT [facility] [address] [place] [address] PHONE: [phone] FAX: [phone] Name .................. : ELLI Denis Acct Number.................. : [id number] ROOM. ................. : Number ................... : [id number] Stay type ............. : O/P Discharge Date......... ... : 04/28/20 Admit Date ......... : 04/28/20 Admit Phys .................... : DARLING AB Date of ....... : 2000 Family Phys ................... : UNKNOWN ZANE Phone .................. : [phone] Age ................................ : 20 Film# .................. .:[id number] Sex ................................. : M Unsigned transcriptions are preliminary reports and do not represent a medical or legal document INJECTION FOR HIP ARTHROGRAM [id number] COMPLETE:04/28/20 14:17 FAITH 21685 REASON FOR EXAM: CH[place] [id number] COMPLETE:04/28/20 14:17 FAITH 96477 (REASON FOR PELVIS: CHRONIC ATRAUMATIC L HIP PAIN FLUOROSCOPIC EXAMINATION OF THE LEFT HIP FOR ARTHROGRAM: HISTORY: Chronic atraumatic left hip pain. 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 PROCEDURE: The benefits and risks of the examination were discussed with the patient. The patient has given informed consent for the procedure. A time out was performed confirming the left hip is the proper hip for today's examination. The skin surface was marked using fluoroscopic guidance. The skin was prepped and dressed in normal sterile fashion. Superficial and deep Lidocaine administration was performed with a 25-gauge needle. A 22- gauge spinal needle was then placed and advanced under fluoroscopic guidance. The needle was passed into the joint space at which time iodinated contrast was administered to confirm proper placement. Approximately 5 cc of iodinated contrast was administered. Once the proper placement was confirmed, approximately 10 cc of 1:200 Gadolinium solution was administered. The needle was then removed. The skin was cleansed and bandaged. No complications were experienced during the procedure. 3 seconds of fluoroscopy time was utilized and 3 images were obtained. Examination dictated by RADHIKA Lucio. Examination was reviewed with Antonio Craig MD, radiologist at the time of this dictation. Page 1 of 2 [facility] [address] [place] [address] PHONE: [phone] FAX: [phone] Name .................. : ELLI JAILYN Denis Acct Number.................. : [id number] ROOM. ................. : Number ................... : [id number] Stay type ............. : O/P Discharge Date......... ... : 04/28/20 Admit Date ......... : 04/28/20 Admit Phys .................... : NATY MADSEN Date of ....... : 2000 Family Phys ................... : UNKNOWN ZANE Phone .................. : [phone] Age .......... ...................... : 20 Film# .................. .:[id number] Sex ................................. : M Unsigned transcriptions are preliminary reports and do not represent a medical or legal document INJECTION FOR HIP ARTHROGRAM [id number] COMPLETE:04/28/20 14:17 FAITH [id number] REASON FOR EXAM: CH[place] [id number] COMPLETE:04/28/20 14:17 FAITH [id number] (REASON FOR PELVIS: CHRONIC ATRAUMATIC L HIP PAIN Electronically Reviewed and Signed By Vic Craig MD , 04/30/20 09:08, TDS Transcribe Initials: STUART , Transcribe Date: 04/28/20 15:47, Dictation Date: Copy for: NATY CH Copy for: 710 MED REC Page 2 of 2 Name Value Range Interpretation Code Description Data Jeannie rce(s) Supporting Document(s) Procedure Social History No Information
--- OUTSIDE RECORDS SUMMARY | 2021-05-02 12:13 | CCD ---
Author Author [facility] Organization [facility] Address Unknown Phone Unavailable Care Team Providers Care [employer]crete Block [employer] Supervisor Name Role Phone Annel Alfonso Unavailable Unavailable [...] Unavailable Adrian Rocha MD Unavailable Unavailable Adrian Rohca MD Unavailable Unavailable Adrian Rocha MD Unavailable [...] by Article 27-F of the [facility] Public Health law. If you continue you may have access to information: Regarding HIV / AIDS; Provided by facilities licensed or operated by the [facility] Office of Mental Health; or Provided by the [facility] Office for People With Developmental Disabilities. If such information is present, then the following [facility] mandated warning applies: This information [...] law may result in a fine or detention sentence or both. A general authorization for the release of medical or other information is NOT sufficient authorization for further disc losure. Encounters Encounter Providers Location Date Indications Data Source(s ) Emergency Attender: Adrian Rocha MDConsultant: TYESHA BOWLES 03/29/2021 12:53:00 PM EDT - 03/29/2021 07:14:00 PM [facility]. Emergency Attender: JORGE HERMOSILLO 2020 02:42:00 PM EDT - 03/07/2021 07:39:00 PM EDT [facility] Patient discharged. Outpatient Attender: Brandi GARRIDO 04/28 01:06:00 PM EDT - 04/28/2020 02:06:00 PM EDT [facility] Immunizations Vaccine Date Status Description Data Source(s) COVID-19 VACCINE [place] 12/02/2020 12:00:00 AM EDT completed [facility] Vaccine Series Complete: YESThis Data wa s Submitted to [facility]. Medications No Information Insurance Providers Payer name Policy type / Coverage type Policy ID Covered constitution party ID Covered constitution party's relationship to richardson Policy Richardson Plan Information [facility] - O/P [id number] 18 [id number] [facility] ACTIVE DUTY [id number] SP [id number] Problems, Conditions, and Diagnoses Code Display Name Description Problem Type Effective Dates Data Source(s) Z8719 Personal history of other diseases of th e digestive system Personal history of other diseases of the digestive system Diagnosis 03/16 12:53:00 PM EDT [facility] C81907 Nicotine dependence, other tobacco produ ct, uncomplicated Nicotine dependence, other tobacco product, uncomplicated Diagnosis 03/29 12:53:00 PM EDT [facility] K219 Gastro-esophageal reflux disease without esophagitis Gastro-esophageal reflux disease without esophagitis Diagnosis 03/29/2021 12:53:00 PM ED T [facility] 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 Diagnosis 03/29/2021 12:53:00 PM EDT [facility] R1031 Right lower quadrant pain Right lower quadrant pain Di agnosis 03/29/2021 12:53:00 PM EDT [facility] K2970 Gastritis, unspecified, without bleeding Gastritis, unspecified, without bleeding Diagnosis 03/07/2021 02:42:00 PM EDT [facility] R1013 Epigastric pain Epigastric pain Diagnosis 03/07/2021 02:4 2:00 PM EDT [facility] V39151 Pain in left hip Pain in left hip Diagnosis 04/28/2020 01 :06:00 PM EDT [facility] Surgeries/Procedures No Information Results ID Date Data Source [id number] 03/29/2021 12:53:00 PM EDT [facility] 1 OrderSheet [facility] Emergency Department [address] [place] [address] Phone #: ext- [phone] 03/29/2021 12:49 [id number] Sex: M : 2000 Age: 21yWEIGHT:81.6 kg (S) HEIGHT:70 inches (S) BMI:25.8ALLERGIES: NoneCHIEF COMPLAINT: abdominal painDIAGNOSIS: Mesenteric lymphadenitis, Abdominal painLAB ORDERSOrder Description Priority Entered Acknowledged InitialedCBC w Diff STAT 15:03/29/2021 15:34 [facility] [facility] PA; [id number] STAT 15:03/29/2021 15:34 [facility] Raquel ER PA; Fyjx4Rpzhwu Acid STAT 15:03/29/2021 15:34 [place] [facility] Ra[facility] PA; [id number] STAT 15:03/29/2021 15:34 [place] ED [facility] Raquel CIATY PA; [id number] (Clean STAT 15:03/29/2021 15:23 [place] EDCatch) Venkat [employer] [facility] Raquel ER PA; [id number] STUDY ORDERSOrder Description Priority Entered Acknowledged InitialedCT Abd PEL W/ IV STAT 15:03/29/2021 16:57 TerryContrast Only Venkat Camarillo RN(Oxygen?(No)) PA;(IV?(Yes)) NOTES: RLQ Pain Reason for Study: Abdominal PainMEDICATION/IV/DRIP/FLUID ORDERSOrder Description Priority Entered Acknowledged InitialedNS IV 1000 mL 15:03/29/2021 15:42 Amanda,Bolus: : Bolus 1000 Venkat Ornelas RyanmL (X1) PA;Toradol IVP 30 mg 15:03/29/2021 15:42 Amanda, 2 OrderSheet [facility] Emergency Department [address] [place] [address] Phone #: ext- [phone] 03/29/2021 12:49 Patient: JAILYN CALLOWAY Sex: M : 2000 Age: 21y Venkat GARRIDO;GENERAL ORDERSOrder Description Priority Entered Acknowledged Initialed[Electronically signed by Alecia Styles R.N. (19:14 03/29/2021)][Electronically signed by Venkat Ornelas (23:23 03/30/2021)][Electronically locked by Alecia Styles R.N. (19:14 03/29/2021)] Name Value Range Interpretation Code Description Data Jeannie rce(s) Supporting Document(s) ID Date Data Source [id number] 03/29/2021 12:53:00 PM EDT [facility] 1 Medication Reconciliation Report [facility] Emergency Department [address] [place] [address] Phone #: ext- [phone] 03/29/2021 12:49 [...] Dispense 20 tablet.Refills: 0. Substitution permitted.Pharmacy - [facility] - [id number] ; [place] [address]. FaxNumber: .metronidazole 500 mg tablet Take 1 tablet every eight hours as directed for 10 days -- for diarrhea /gastroenteritis. Dispense 30 tablet. Refills: 0. Substitution permitted.Pharmacy - [facility] - [address] ; [place] [address]. . -- RADHIKA Lipscomb Name Value Range Interpretation Code Description Data Jeannie rce(s) Supporting Document(s) ID Date Data Source [id number] 03/29/2021 12:53:00 PM EDT [place] [address] Medication Administration Record [facility] Emergency Department [address] [place] [address] Phone #: ext- [phone] 03/29/2021 12:49 Patient: JAILYN CALLOWAY Sex: M : 2000 Age: 21yWeight: 81.6 kgHeight/Length: 70 inBMI: 25.8ALLERGIES: None Date/Time Medication Administered Medication OrderedStart NS [IV] NS IV 1000 mL Bolus: : Bolus 323547:[id number] 03/29/2021 Dose: IV Fluids mL (X1)Jacob Patel, Bolus: 1000 mL wide open---- Dispensed: 1000 mL bagStop Site: #1 left AC16:55 03/29/2021Van Camarillo RNGiven TORADOL [IVP] (KETOROLAC Toradol IVP 30 mg15:42 03/29/2021 TROMETHAMINE)Jacob Patel, Dose: 30 mg IVP Site: #1 left AC Name Value Range Interpretation Code Description Data Jeannie rce(s) Supporting Document(s) ID Date Data Source [id number] 03/29/2021 12:53:00 PM EDT [facility] 1 General Instructions [facility] Emergency Department [address] [place] [address] Phone #: ext- [phone] 03/29/2021 12:49 Patient: JAILYN CALLOWAY Sex: M [...] Dispense 20 tablet.Refills: 0. Substitution permitted.Pharmacy - [facility] [employer] [address] ; [place] [address]. .metronidazole 500 mg tablet Take 1 tablet every eight hours as directed for 10 days -- for diarrhea /gastroenteritis. Dispense 30 tablet. Refills: 0. Substitution permitted.Pharmacy - [facility] [employer] - [address] ; [place] [id number]. .Follow-up:Follow up with your doctor tomorrow. Call for the next available appointment. Reason for referral:evaluation, treatment and refer to Gastroenterolgy if symptoms persist. Summary of care provided topatient.Understanding of the discharge instructions verbalized by patient. ADDITIONAL INFORMATIONUnknown Causes of Abdominal Pain (Male) 2 General Instructions [facility] Emergency Department [address] [place] [address] Phone #: ext- [phone] 03/29/2021 12:49 Patient: JAILYN CALLOWAY Sex: M [...] to seek medical advice 3 General Instructions [facility] Emergency Department [address] [place] [address] Phone #: ext- [phone] 03/29/2021 12:49 Patient: JAILYN CALLOWAY Sex: M [...] chest, arm, back, neck or jaw pain [phone] [employer] [place] [address]. All rights reserved. This information is not [...] another reason for testing. 4 General Instructions [facility] Emergency Department [address] [place] [address] Phone #: ext- [phone] 03/29/2021 12:49 Patient: [...] will be told if there are changes.Call [phone] if any of these occur: Trouble breathing Confusion Very drowsy or trouble awakening Fainting or loss of consciousness Rapid heart rate Chest painWhen to seek medical adviceCall your healthcare provider right away if any of these occur: Fever of 100.4F (38C) or higher, or as directed by your healthcare provider 5 General Instructions [facility] Emergency Department [address] [place] [address] Phone #: ljc- [phone] 03/29/2021 12:49 Patient: JAILYN CALLOWAY Sex: M [...] skin Swelling in the abdomen Bloody stools [id number] [employer]. [address] [place] [address]. All rights reserved. This information is not intended as asubstitute for professional medical care. Always follow your healthcare professional's instructions. You have been given the following additional information: Unknown Causes of Abdominal Pain (Male) Adenitis, Mesenteric(Electronically signed by RADHIKA Lipscomb 03/30/2021 23:23) Name Value Range Interpretation Code Description Data Jeannie rce(s) Supporting Document(s) ID Date Data Source [id number] 03/29/2021 12:53:00 PM EDT [facility] 1 Clinical Report - Nurses [facility] Emergency Department [address] [place] [address] Phone #: ext [phone] 03/29/2021 12:49 Patient: JAILYN CALLOWAY Sex: M : 2000 Age: 21yTRIAGEAcuity: LEVEL 3.Chief Complaint: ABDOMINAL PAIN.Alert. No acute distress.Onset. (5 months). ( Pt has had abd pain for 5 months, he had an US of his gallbladder here. Pt had anapt with his PCP today and had RLQ pain and suggested he come for a CT scan.). --13:03/29/21Nica Bright R.N.Treatment ELECTRICAL DESIGN TECHNOLOGIST:None. --13:03/29/21 Nica Bright R.N.SEPSIS SCREEN: SIRS SCREEN [...] Immunizations: up-to-date. 2 Clinical Report - Nurses [facility] Emergency Department [address] [place] [address] Phone #: ext- [phone] 03/29/2021 12:49 Patient: [...] completed. No skin integrity risk identified. --13:03/29/21 Nica Bright R.N. Interventions Identification band on patient. --13:03/29/21 Nica Bright R.N.NURSING PROGRESS NOTES15:03/29/21. BP: 115/62. HR: 64. RR: 24. O2 saturation: 92%. --15:06 03/29/21 AnchantoRaquel, ER Tech1 Correction. --15:03/29/21 Anch[place] Raquel, Xen[employer] Tech1 15:03/29/21. BP: 115/62. HR: 55. RR: 16. O2 saturation: 100%. --15:07 03/29/21 [place] Raquel, ER Tech1 Patient ID band checked for patient name and birthdate: patient confirmed. Blood samples drawn by lab per protocol ; labeled in presence of the patient and sent to lab. --15:36 03/29/21 [place] [employer], Raquel, Tech1 15:42 03/29/2021 Site #1 started via IV in the left antecubital space with an 20g angiocath, with aseptic technique and good blood return; one attempt. Saline lock flushed with 10 mL saline. --15:42 03/29/21 Jacob Patel 3 Clinical Report - Nurses [facility] Emergency Department [address] [place] [address] Phone #: ext- [phone] 03/29/2021 12:49 Patient: JAILYN CALLOWAY Sex: M [...] 16. O2 saturation: 99%. --16:09 03/29/21 [facility] conduit [facility] Tech1 16:55 03/29/2021 IV Fluids NS via IV site #1 Discontinued: bag #1 infused. Total amount infused: 1000 mL. IV patency established. IV site checked: no pain, redness, or swelling. IV flushed thoroughly. --17:06 03/29/21 Van Camarillo RN Patient transported to [place] by wheelchair with mask and office equipment technician. ([id number]). --17:07 03/29/21 Van Camarillo RN 17:12 03/29/21. BP: 118/55. HR: 61. RR: 16. O2 saturation: 100%. --17:12 03/29/21 [facility] Tech1 18:08 03/29/21. BP: 106/49. HR: 57. RR: 16. O2 saturation: 99%. --18:08 03/29/21 [facility] Tech1.DISPOSITION / DISCHARGE 18:43 03/29/21. BP: 112/75. HR: 69. RR: 16. O2 saturation: 100%. Temp: 97.8 F. Pain level now 07/25. --18:44 03/29/21 [facility] Tech1 19:14 03/29/2021 Site #1 removed upon [...] Styles R.N. 4 Clinical Report - Nurses [facility] Emergency Department [address] [place] [address] Phone #: ext- [phone] 03/29/2021 12:49 Patient: JAILYN CALLOWAY Sex: Sincere : 2000 Age: 21y Name Value Range Interpretation Code Description Data Jeannie rce(s) Supporting Document(s) ID Date Data Source [id number] 03/29/2021 12:53:00 PM EDT [facility] 1 Clinical Report - Physicians/Mid Levels [facility] Emergency Department [address] [place] [address] Phone #: ext- [phone] 03/29/2021 12:49 Patient: JAILYN CALLOWAY Sex: M : 2000 Age: 21y Time Seen: 15:23 03/29/2021. Arrived- By private vehicle. Historian- patient.HISTORY OF PRESENT ILLNESS Chief Complaint: ABDOMINAL PAIN. This started 5 months ago, worse today; sent here from [facility] to rule out appy. It was abrupt [...] Pharynx normal. 2 Clinical Report - Physicians/Mid [facility] Emergency Department [address] [place] [address] Phone #: ext- [phone] 03/29/2021 12:49 Patient: [...] PANEL 3 Clinical Report - Physicians/Mid Levels [facility] Emergency Department [address] [place] [address] Phone #: ext- [phone] 03/29/2021 12:49 Patient: [...] Male GFR Interprentation 20-49 yrs >60 mL/min Hkvsea71-18 yrs >56 mL/min Normal 60-69 yrs >49 mL/min Normal 70-79yrs>42 mL/min Normal 80 and above >35 mL/min Normal Female GFRInterpretation 20-39 yrs >60 mL/min Normal 40-49 yrs >58 mL/minNormal 50-59 yrs >51 mL/min Normal 60-69 yrs >45 mL/min Naxxqe57-67 yrs >39 mL/min Normal 80 and above >32 mL/min NormalLactic Acid: (CORKY: 03/29/2021 15:35) ( [facility] 03/29/2021 15:52) Final results Test Result Flag Units * *(Reference) LACTIC ACID 1.4 MMOL/L (0.2 - 2.2)Lipase: (CORKY: 03/29/2021 15:35) ( [facility] 03/29/2021 16:09) Final results Test Result Flag Units (Reference) LIPASE 35 U/L (13 - 60)Urinalysis: (CORKY: 03/29/2021 16:30) ( [facility] 03/29/2021 16:37) Final results Test Result Flag [...] IV Contrast Only: (CORKY: 03/29/2021 15:23) ( [facility] 03/29/2021 17:36) In Progress 4 Clinical Report - Physicians/Mid Levels [facility] Emergency Department [address] [place] [address] Phone #: ext- [phone] 03/29/2021 12:49 Patient: JAILYN CALLOWAY Sex: M [...] tablet. Refills: 0. Substitution permitted. Pharmacy - [facility] [employer] ; [place] [address]. . metronidazole 500 mg tablet Take 1 tablet every eight hours as directed for 10 days -- for diarrhea / gastroenteritis. Dispense 30 tablet. Refills: 0. Substitution permitted. Pharmacy - [facility] - [address] ; [place] [address]. . 5 Clinical Report - Physicians/Mid Levels [facility] Emergency Department [address] [place] [address] Phone #: ext- [phone] 03/29/2021 12:49 Patient: JAILYN CALLOWAY Sex: M [...] rce(s) Supporting Document(s) ID Date Data Source [id number] 03/30/2021 10:36:00 [place] [address] PHONE: [phone] FAX: [phone] Name .................. : ELLI Denis Acct Number.................. : [id number] ROOM. ................. : TR-06 Number ................... : [id number] Stay type ............. : E/R Discharge Date......... ... : 03/29/21 Admit Date ......... : 03/29/21 Admit Phys .................... : KINGSTON Fuentes Date of ....... : 2000 Family Phys ................... : UNKNOWN ZANE Phone .................. : [phone] Age ................................ : 21 Film# .................. .:[id number] Sex ................................. : M Unsigned transcriptions are preliminary reports and do not represent a medical or legal document CT ABD & PELVIS W/ IV ONLY [id number] COMPLETE:03/29/21 17:36 SYED[place] [id number] Reason(s): Ab dominal Pain CT ABDOMEN AND [...] vesicles are unremarkable Page 1 of 3 [facility] [address] [place] [address] PHONE: [phone] FAX: [phone] Name .................. : ELLI JAILYN Denis [facility] Number.................. : [id number] ROOM. ................. : TR-06 Number ................... : [id number] Stay type ............. : E/R Discharge Date......... ... : 03/29/21 Admit Date ......... : 03/29/21 Admit Phys .................... : KINGSTON Fuentes Date of ....... : 2000 Family Phys ................... : UNKNOWN ZANE Phone .................. : [phone] Age ................................ : 21 Film# .................. .:[id number] Sex ................................. : M Unsigned transcriptions are preliminary reports and do not represent a medical or legal document CT ABD & PELVIS W/ IV ONLY [id number] COMPLETE:03/29/21 17:36 SYEDA [id number] Reason(s): Abdominal Pain BOWEL/GI: The appendix is [...] via fax Copy for: EMERGENCY DEPT via [facility] [place] Page 2 of 3 [facility] [address] [place] [address] PHONE: [phone] FAX: [phone] Name .................. : ELLI Denis Acct Number.................. : [id number] ROOM. ................. : TR-06 MR Number ................... : [id number] Stay type ............. : E/R Discharge Date......... ... : 03/29/21 Admit Date ......... : 03/29/21 Admit Phys .................... : KINGSTON Fuentes Date of ....... : 2000 Family Phys ................... : UNKNOWN ZANE Phone .................. : [phone] Age ......... ....................... : 21 Film# .................. .:[id number] Sex ................................. : M Unsigned transcriptions are preliminary reports and do not represent a medical or legal document CT ABD & PELVIS W/ IV ONLY [id number] COMPLETE:03/29/21 17:36 SYEDA [id number] Reason(s): Abdominal Pain Copy for: 710 MED REC DISCHARGED Page 3 of 3 Name Value Range Interpretation Code Description Data Jeannie rce(s) Supporting Document(s) ID Date Data Source [id number] 03/29/2021 04:37:00 PM EDT [facility] Name Value Range Interpretation Code Description Data Jeannie rce(s) Supporting Document(s) [facility] COLOR nica NORMAL: Yellow [facility] ospital CLARITY clear NORMAL: Clear [facility] spital Specific gravity of Urine by Test strip 1.020 1.001 - 1.030 [facility] pH 5 5 - 9 [facility] Glucose [Mass/volume] in Urine by Test strip NORM NORMAL: Negat [facility] Bilirubin.total [Presence] in Urine by Test strip NEG NORMAL: Negative [facility] Ketones [Presence] in Urine by Test strip NEG NORMAL: Negative [facility] Protein [Mass/volume] in Urine by Test strip NEG NORMAL: Negat [facility] Nitrite [Presence] in Urine by Test strip NEG NORMAL: Negative [facility] BLOOD NEG NORMAL: Negative [facility] LEUK EST NEG NORMAL: Negative [facility] Urobilinogen [Mass/volume] in Urine by Test strip NOR less valentina n 1.0 mg/dL [facility] MICROSCOPIC Not Indicate [facility] H ospital ID Date Data Source [id number] 03/29/2021 04:10:00 PM EDT [facility] Name Value Range Interpretation Code Description Data Jeannie rce(s) Supporting Document(s) COMPREHENSIVE METABOLIC PANEL [facility] COMPREHENSIVE METABOLIC PANEL Sodium [Moles/volume] in Serum or Plasma 138 mEq/L 134 - 153 [facility] Potassium [Moles/volume] in Serum or Plasma 4.0 mEq/L 3.6 - 5.0 [facility] Chloride [Moles/volume] in Serum or Plasma 99 mEq/L 98 - 107 [facility] Carbon dioxide, total [Moles/volume] in Serum or Plasma 27 MEQ/L 22 - 30 [facility] Glucose [Mass/volume] in Serum or Plasma 90 MG/DL 70 - 99 [facility] BUN 17 MG/DL 7 - 21 [facility] Creatinine [Mass/volume] in Serum or Plasma 1.0 MG/DL 0.7 - 1.5 [facility] BUN/CREAT 17 8 - 27 [facility] Protein [Mass/volume] in Serum or Plasma 7.9 G/DL 6.3 - 8.2 [facility] Albumin [Mass/volume] in Serum or Plasma 5.1 G/DL 3.9 - 5.0 H [facility] Globulin [Mass/volume] in Serum by calculation 2.8 GM/DL 2.4 - 3.2 [facility] A/G RATIO 1.8 0.8 - 2.0 [facility] Calcium [Mass/volume] in Serum or Plasma 9.8 MG/DL 8.4 - 10.2 [facility] Bilirubin.total [Mass/volume] in Serum or Plasma <0.7 MG/DL 0.2 - 1.3 [facility] Alkaline phosphatase [Enzymatic activity/volume] in Serum or Plasma 55 U/L 38 - 126 [facility] Aspartate aminotransferase [Enzymatic activity/volume] in Serum or Plasma 23 U/L 5 - 40 [facility] Alanine aminotransferase [Enzymatic activity/volume] in Seru m or Plasma 15 U/L 7 - 56 [facility] Anion gap 3 in Serum or Plasma 12.0 mmol/L 8.0 - 16.0 [facility]GE 21 y[facility] GFR >60 mL/min [facility] ital AFR AMER GFR >60 mL/min [facility] Ho spital Male GFR In terprentation [...] >32 mL/min Normal ID Date Data Source [id number] 03/29/2021 04:09:00 PM EDT [facility] Name Value Range Interpretation Code Description Data Jeannie rce(s) Supporting Document(s) Lipase [Enzymatic activity/volume] in Serum or Plasma 35 U/L 13 - 60 [facility] ID Date Data Source [id number] 03/29/2021 03:52:00 PM EDT [facility] Name Value Range Interpretation Code Description Data Jeannie rce(s) Supporting Document(s) Lactate [Moles/volume] in Serum or Plasma 1.4 MMOL/L 0.2 - 2.2 [facility] ID Date Data Source [id number] 03/29/2021 03:48:00 PM EDT [facility] Name Value Range Interpretation Code Description Data Jeannie rce(s) Supporting Document(s) CBC W/AUTOMATED DIFF [facility] COMPLETE BLOOD COUNT Leukocytes [#/volume] in Blood by Automated count 8.1 10^3/uL 4.2 - 1 1.0 [facility] Erythrocytes [#/volume] in Blood by Automated count 4.92 10^6/uL 4. 50 - 6.30 [facility] Hemoglobin [Mass/volume] in Blood 15.0 g/dL 14.0 - 16.0 [facility] Hematocrit [Volume Fraction] of Blood by Automated count 44.1 % 4 1.0 - 51.0 [facility] Erythrocyte mean corpuscular volume [Entitic volume] by Auto mated count 89.6 fL 80.0 - 94.0 [facility] Erythrocyte mean corpuscular hemoglobin [Entitic mass] by Automated count 30.5 pg 27.0 - 34.0 [facility] Erythrocyte mean corpuscular hemoglobin concentration [Mass/volume] by Automated count 34.0 g/dL 31.0 - 36.0 [facility] Erythrocyte distribution width [Ratio] by Automated count 12.5 % 11.5 - 14.8 [facility] Platelets [#/volume] in Blood by Automated count 298 10^3/uL 150 - 45 0 [facility] Platelet mean volume [Entitic volume] in Blood by Automated count 9.8 fL 7.4 - 10.4 [facility] Neutrophils/100 leukocytes in Blood by Automated count 58.7 % 37. 0 - 80.0 [facility] Lymphocytes/100 leukocytes in Blood by Manual count 28.1 % 25.0 - 40.0 [facility] Monocytes/100 leukocytes in Blood by Automated count 9.4 % 3.0 - 8.0 H [facility] Eosinophils/100 leukocytes in Blood by Automated count 3.1 % 0.0 - 7.0 [facility] Basophils/100 leukocytes in Blood by Automated count 0.5 % 0.0 - 2.0 [facility] %IG 0.2 % 0.0 - 0.0 H [facility] %NRBC 0.0 % 0.0 - 0.0 [facility] Neutrophils [#/volume] in Blood by Automated count 4.77 10^3/uL 2.00 - 6.90 [facility] Lymphocytes [#/volume] in Blood by Automated count 2.28 10^3/uL 0.60 - 3.40 [facility] Monocytes [#/volume] in Blood by Automated count 0.76 10^3/uL 0.00 - 0.90 [facility] Eosinophils [#/volume] in Blood by Automated count 0.25 10^3/uL 0.00 - 0.70 [facility] Basophils [#/volume] in Blood by Automated count 0.04 10^3/uL 0.00 - 0.20 [facility] #IG 0.02 10^3/uL 0.00 - 0.10 [facility]spital #NRBC 0.00 10^3/uL 0.00 - 0.00 [facility] MANUAL DIFF NOT INDICATED [facility] RBC MORPH NOT INDICATED [facility] spital ID Date Data Source [id number] 03/07/2021 02:42:00 PM EDT [facility] 1 OrderSheet [facility] Emergency Department [address] [place] [address] Phone #: ext- [phone] 03/07/2021 14:41 Patient: JAILYN CALLOWAY Sex: M : 2000 Age: 21yWEIGHT:81.6 kg (S) HEIGHT:67 inches (S) BMI:28.2ALLERGIES: NoneCHIEF COMPLAINT: abdominal painDIAGNOSIS: Gastroesophageal reflux disease, GastritisLAB ORDERSOrder Description Priority Entered Acknowledged InitialedUrinalysis (Clean STAT 15:07 03/07/2021 15:07 Damion Rick) Madonna Rick R.N.; RCarleen Verbal order per; Sage Moise [facility] w Diff STAT 15:20 03/07/2021 15:52 Jorge [...] Alberto(HIGH ALERT Jorge Hermosillo RN 2 OrderSheet [facility] Emergency Department [address] [place] [address] Phone #: ext- [phone] 03/07/2021 14:41 Patient: JAILYN CALLOWAY Sex: M [...] rce(s) Supporting Document(s) ID Date Data Source [id number] 03/07/2021 02:42:00 PM EDT [facility] 1 Medication Reconciliation Report [facility] Emergency Department [address] [place] [address] Phone #: ext- [phone] 03/07/2021 14:41 Patient: JAILYN CALLOWAY Sex: M [...] Dispense 30 tablet.Refills: 1. Substitution permitted.Pharmacy - [facility] - [address] ; [place] [address]. . -- Jorge Hermosillo M.D. Name Value Range Interpretation Code Description Data Jeannie rce(s) Supporting Document(s) ID Date Data Source [id number] 03/07/2021 02:42:00 PM EDT [facility] 1 Medication Administration Record [facility] Emergency Department [address] [place] [address] Phone #: ext- [phone] 03/07/2021 14:41 Patient: JAILYN CALLOWAY Sex: M : 2000 Age: 21yWeight: 81.6 kgHeight/Length: 67 inBMI: 28.2ALLERGIES: None Date/Time Medication Administered Medication OrderedStart LR [IV] LR IV : Bolus 500 mL, then 46002:50 03/07/2021 Dose: IV Fluids mL/hrPyessy Treviño RN [...] rce(s) Supporting Document(s) ID Date Data Source [id number] 03/07/2021 02:42:00 PM EDT [facility] 1 General Instructions [facility] Emergency Department [address] [place] [address] Phone #: ext [phone] 03/07/2021 14:41 Patient: JAILYN CALLOWAY Sex: M [...] FOLLOW UP WITH OUR SURGEONS HERE AT [facility]).Warnings: Further evaluation is necessary (GI referral). It [...] Dispense 30 tablet.Refills: 1. Substitution permitted.Pharmacy - [facility] - [address] ; [place] [address]. .Follow-up:Return to the emergency department as needed. Follow up with a simonizer in seven days evenif well. Call for an appointment. Reason for referral: evaluation and treatment. Summary of care provided topatient via paper.Understanding of the discharge instructions verbalized by patient. Expected course of illness, dischargeinstructions, activity level, diet, prescriptions x1, follow-up appointment and risks and benefits of treatmentreviewed with patient and understanding verbalized. Agrees to plan of care.Follow-up with: [facility], , , [address] [place] [address], [address] Follow up in five days if not better. Call for an appointment. Reason for referral: evaluation and treatment. 2 General Instructions [facility] Emergency Department [address] [place], [place] [address] Phone #: ext- [phone] 03/07/2021 14:41 Patient: [...] appetite Nausea or vomiting 3 General Instructions [facility] Emergency Department [address] [place] [address] Phone #: ext- [phone] 03/07/2021 14:41 Patient: [...] by your healthcare provider 4 General Instructions [facility] Emergency Department [address] [place] [address] Phone #: ext- [phone] 03/07/2021 14:41 -- Patient: JAILYN CALLOWAY Sex: M : 2000 Age: 21y [id number] [employer] [address] [place] [address]. All rights reserved. This information is not [...] when lying down.Home care 5 General Instructions [facility] Emergency Department [address] [place] [address] Phone #: ext- [phone] 03/07/2021 14:41 Patient: JAILYN CALLOWAY Sex: M [...] seek medical advice 6 General I nstructions [facility] Emergency Department [address] [place] [address] Phone #: ext- [phone] 03/07/2021 14:41 Patient: JAILYN CALLOWAY Sex: M : 2000 Age: 21yCall your healthcare provider if any of the following occur: Stomach pain gets worse or moves to the lower right abdomen (appendix area) Chest pain appears or gets worse, or spreads to the back, neck, shoulder, or arm An heuv-nqd-lrmuvbm trial of medicine doesn't relieve your symptoms Weight loss that can't be explained Trouble or pain swallowing Frequent vomiting (can't keep down liquids) Blood in the stool or vomit (red or black in color) Feeling weak or dizzy Fever of 100.4F (38C) or higher, or as directed by your healthcare provider [employer]. [address] [place] [address], [place] [address]. All rights reserved. This information is not intended as asubstitute for professional medical care. Always follow your healthcare professional's instructions. You have been given the following additional information: Gastritis (Adult) GERD (Adult)(Electronically signed by Jorge Hermosillo M.D. 03/07/2021 20:33) Name Value Range Interpretation Code Description Data Jeannie rce(s) Supporting Document(s) ID Date Data Source [id number] 03/07/2021 02:42:00 PM EDT [facility] 1 Clinical Report - Nurses [facility] Emergency Department [address] [place] [address] Phone #: ext- [phone] 03/07/2021 14:41 Patient: [...] and fried foods still has his gallbladder).Treatment ELECTRICAL DESIGN TECHNOLOGIST:None.SEPSIS SCREEN: SIRS SCREEN NEGATIVE. SEPSIS SCREEN NEGATIVE. [...] [place] 2 Clinical Report - Nurses [facility] Emergency Department [address] [place] [address] Phone #: ext- [phone] 03/07/2021 14:41 Patient: JAILYN CALLOWAY Sex: M [...] with aseptic 3 Clinical Report - Nurses [facility] Emergency Department [address] [place] [address] Phone #: ext- [phone] 03/07/2021 14:41 Patient: JAILYN CALLOWAY Sex: M [...] RR: 18. O2 saturation: 96%. --18:11 03/07/21 [facility] Nadir IgnacioUNITED [facility] AIR [facility] Tech 19:10 03/07/21. BP: 102/63. MAP: 76. [...] electronically to pharmacy. Reviewed referral to a simonizer. Patient verbalized understanding. Written instructions provided in Kyrgyz. The patient was discharged by the physician. 4 Clinical Report - Nurses [facility] Emergency Department [address] [place] [address] Phone #: ext- [phone] 03/07/2021 14:41 Patient: JAILYN CALLOWAY Sex: M : 2000 Age: 21y He was discharged home and accompanied by sports equipment repairer. He left ambulatory and via private vehicle. Tram Operator driving. --19:38 03/07/21 Alberto Treviño RN 19:31 03/07/21. BP: 102/63. MAP: 76. HR: 56. RR: 16. O2 saturation: 100%. Pain level now: 09/22. --19:38 03/07/21 Alberto Treviño RN.Locked/Released at 03/07/2021 19:38 by Alberto Treviño RN Name Value Range Interpretation Code Description Data Jeannie rce(s) Supporting Document(s) ID Date Data Source [id number] 03/07/2021 02:42:00 PM EDT [facility] 1 Clinical Report - Physicians/Mid Levels [facility] Emergency Department [address] [place] [address] Phone #: ext- [phone] 03/07/2021 14:41 Patient: JAILYN CALLOAWY Sex: M : 2000 Age: 21y Time [...] use. 2 Clinical Report - Physicians/Mid Levels [facility] Emergency Department [address] [place] [address] Phone #: ext- [phone] 03/07/2021 14:41 Patient: [...] O2? Oxygen?(No) Room: ED Exam US GALLBLADDER [facility] [address] [place] [address] PHONE: [phone] FAX: [phone] Name .................. : ELLI Denis Acct Number.................. : [id number] ROOM. ................. : VT-13 Number ................... : [id number] Stay type ............. : E/R Discharge Date......... ... : Admit Date ......... : 03/07/21 Admit Phys ............ ........ : BAY NEAL Date of ....... : 2000 Family Phys ................... : UNKNOWN ZANE Phone .................. : [phone] Age ................................ : 21 Film# .................. .:[id number] Sex ................................. : M Unsigned transcriptions are preliminary reports and do not represent a medical or legal document GALLBLADDER [id number] COMPLETE:03/07/21 18:51 MWB [id number] Reason(s): RUQ Pain 3 Clinical Report - Physicians/Mid Levels [facility] Emergency Department [address] [place] [address] Phone #: ext- [phone] 03/07/2021 14:41 Patient: [...] ALO ugarte Diff: (CORKY: 03/07/2021 15:26) ( [facility] 03/07/2021 15:36) Final results Test Result Flag [...] 0.0) 4 Clinical Report - Physicians/Mid Levels [facility] Emergency Department [address] [place] [address] Phone #: ext- [phone] 03/07/2021 14:41 Patient: [...] Male GFR Interprentation 20-49 yrs >60 mL/min Ihkfeq08-20 yrs >56 mL/min Normal 60-69 yrs >49 mL/min Normal 70-79yrs>42 mL/min Normal 80 and above >35 mL/min Normal Female GFRInterpretation 20-39 yrs >60 mL/min Normal 40-49 yrs >58 mL/minNormal 50-59 yrs >51 mL/min Normal 60-69 yrs >45 mL/min Lqawcr04-12 yrs >39 mL/min Normal 80 and above >32 mL/min NormalLipase: (CORKY: 03/07/2021 15:26) ( [facility] 03/07/2021 16:12) Final results Test Result Flag Units (Reference) LIPASE 29 U/L (13 - 60)Lactic Acid: (CORKY: 03/07/2021 15:26) ( [facility] 03/07/2021 15:57) Final results Test Result Flag Units (Reference) LACTIC ACID 2.1 MMOL/L (0.2 - 2.2)Urinalysis: (CORKY: 03/07/2021 14:55) ( [facility] 03/07/2021 15:36) Final results Test Result Flag Units (Reference) URINALYSIS URINALYSIS 5 Clinical Report - Physicians/Mid Levels [facility] Emergency Department [address] [place] [address] Phone #: ext- [phone] 03/07/2021 14:41 Patient: [...] will also refer to surgery here at [facility]; pt understands d/c instructions. Daughter counseled in [...] FOLLOW UP WITH OUR SURGEONS HERE AT [facility]). 6 Clinical Report - Physicians/Mid Levels [facility] Emergency Department [address] [place] [address] Phone #: ext- [phone] 03/07/2021 14:41 Patient: JAILYN CALLOWAY Sex: M [...] tablet. Refills: 1. Substitution permitted. Pharmacy - [facility] - [address] ; [place] [address]. . Follow-up: Return to the emergency department as needed. Follow up with a simonizer in seven days even if well. Call [...] plan of care. Follow-up with: [facility], , , [address] [place] [address], [address] Follow up in five days if not better. Call for an appointment. Reason for referral: evaluation and treatment. Summary of care provided to patient via paper.(Electronically signed by Jorge Hermosillo M.D. 03/07/2021 20:33) Name Value Range Interpretation Code Description Data Jeannie rce(s) Supporting Document(s) ID Date Data Source [id number] 03/07/2021 07:39:00 PM EDT [address] [address] PHONE: [phone] FAX: [phone] Name .................. : ELLI Denis Acct Number.................. : [id number] ROOM. ................. : VT-13 Number ................... : [id number] Stay type ............. : E/R Discharge Date......... ... : Admit Date ......... : 0 03/07/21 Admit Phys .................... : BAY NEAL Date of ....... : 2000 Family Phys ................... : UNKNOWN ZANE Phone .................. : [phone] Age ................................ : 21 Film# .................. .:[id number] Sex ................................. : M Unsigned transcriptions are preliminary reports and do not represent a medical or legal document GALLBLADDER [id number] COMPLETE:03/07/21 18:51 MWB [id number] Reason(s): RUQ Pain ULTRASOUND RIGHT UPPER QUADRANT [...] EMERGENCY SRV Copy for: EMERGENCY DEPT via [facility] [place] Copy for: [address] [facility] REC Page 1 of 1 Name Value Range Interpretation Code Description Data Jeannie rce(s) Supporting Document(s) ID Date Data Source [id number] 03/07/2021 04:12:00 PM EDT [facility] Name Value Range Interpretation Code Description Data Jeannie rce(s) Supporting Document(s) Lipase [Enzymatic activity/volume] in Serum or Plasma 29 U/L 13 - 60 [facility] ID Date Data Source [id number] 03/07/2021 04:12:00 PM EDT [facility] Name Value Range Interpretation Code Description Data Jeannie rce(s) Supporting Document(s) COMPREHENSIVE METABOLIC PANEL [facility] COMPREHENSIVE METABOLIC PANEL Sodium [Moles/volume] in Serum or Plasma 142 mEq/L 134 - 153 [facility] Potassium [Moles/volume] in Serum or Plasma 4.7 mEq/L 3.6 - 5.0 [facility] Chloride [Moles/volume] in Serum or Plasma 104 mEq/L 98 - 107 [facility] Carbon dioxide, total [Moles/volume] in Serum or Plasma 27 MEQ/L 22 - 30 [facility] Glucose [Mass/volume] in Serum or Plasma 98 MG/DL 70 - 99 [facility] BUN 19 MG/DL 7 - 21 [facility] Creatinine [Mass/volume] in Serum or Plasma 1.2 MG/DL 0.7 - 1.5 [facility] BUN/CREAT 16 8 - 27 [facility] Protein [Mass/volume] in Serum or Plasma 7.7 G/DL 6.3 - 8.2 [facility] Albumin [Mass/volume] in Serum or Plasma 5.0 G/DL 3.9 - 5.0 [facility] Globulin [Mass/volume] in Serum by calculation 2.7 GM/DL 2.4 - 3.2 [facility] A/G RATIO 1.9 0.8 - 2.0 [facility] Calcium [Mass/volume] in Serum or Plasma 10.2 MG/DL 8.4 - 10.2 [facility] Bilirubin.total [Mass/volume] in Serum or Plasma <0.7 MG/DL 0.2 - 1.3 [facility] Alkaline phosphatase [Enzymatic activity/volume] in Serum or Plasma 54 U/L 38 - 126 [facility] Aspartate aminotransferase [Enzymatic activity/volume] in Serum or Plasma 17 U/L 5 - 40 [facility] Alanine aminotransferase [Enzymatic activity/volume] in Seru m or Plasma 13 U/L 7 - 56 [facility] Anion gap 3 in Serum or Plasma 11.0 mmol/L 8.0 - 16.0 [facility] AGE 21 yrs [facility] NON-AA GFR >60 mL/min [facility] AFR AMER GFR >60 mL/min [facility] spital Male GFR In terprentation [...] >32 mL/min Normal ID Date Data Source [id number] 03/07/2021 03:57:00 PM EDT [facility] Name Value Range Interpretation Code Description Data Jeannie rce(s) Supporting Document(s) Lactate [Moles/volume] in Serum or Plasma 2.1 MMOL/L 0.2 - 2.2 [facility] ID Date Data Source [id number] 03/07/2021 03:36:00 PM EDT [facility] Name Value Range Interpretation Code Description Data Jeannie rce(s) Supporting Document(s) CBC W/AUTOMATED DIFF [facility] COMPLETE BLOOD COUNT Leukocytes [#/volume] in Blood by Automated count 7.4 10^3/uL 4.2 - 1 1.0 [facility] Erythrocytes [#/volume] in Blood by Automated count 4.91 10^6/uL 4. 50 - 6.30 [facility] Hemoglobin [Mass/volume] in Blood 15.1 g/dL 14.0 - 16.0 [facility] Hematocrit [Volume Fraction] of Blood by Automated count 44.0 % 4 1.0 - 51.0 [facility] Erythrocyte mean corpuscular volume [Entitic volume] by Auto mated count 89.6 fL 80.0 - 94.0 [facility] Erythrocyte mean corpuscular hemoglobin [Entitic mass] by Automated count 30.8 pg 27.0 - 34.0 [facility] Erythrocyte mean corpuscular hemoglobin concentration [Mass/volume] by Automated count 34.3 g/dL 31.0 - 36.0 [facility] Erythrocyte distribution width [Ratio] by Automated count 12.9 % 11.5 - 14.8 [facility] Platelets [#/volume] in Blood by Automated count 306 10^3/uL 150 - 45 0 [facility] Platelet mean volume [Entitic volume] in Blood by Automated count 9.8 fL 7.4 - 10.4 [facility] Neutrophils/100 leukocytes in Blood by Automated count 56.8 % 37. 0 - 80.0 [facility] Lymphocytes/100 leukocytes in Blood by Manual count 29.3 % 25.0 - 40.0 [facility] Monocytes/100 leukocytes in Blood by Automated count 10.3 % 3.0 - 8.0 H [facility] Eosinophils/100 leukocytes in Blood by Automated count 3.0 % 0.0 - 7.0 [facility] Basophils/100 leukocytes in Blood by Automated count 0.3 % 0.0 - 2.0 [facility] %IG 0.3 % 0.0 - 0.0 H [facility] al %NRBC 0.0 % 0.0 - 0.0 [facility] al Neutrophils [#/volume] in Blood by Automated count 4.18 10^3/uL 2.00 - 6.90 [facility] Lymphocytes [#/volume] in Blood by Automated count 2.15 10^3/uL 0.60 - 3.40 [facility] Monocytes [#/volume] in Blood by Automated count 0.76 10^3/uL 0.00 - 0.90 [facility] Eosinophils [#/volume] in Blood by Automated count 0.22 10^3/uL 0.00 - 0.70 [facility] Basophils [#/volume] in Blood by Automated count 0.02 10^3/uL 0.00 - 0.20 [facility] #IG 0.02 10^3/uL 0.00 - 0.10 [facility] ospital #NRBC 0.00 10^3/uL 0.00 - 0.00 [facility] ospital MANUAL DIFF NOT INDICATED [facility] RBC MORPH NOT INDICATED [facility] Ho spital ID Date Data Source [id number] 03/07/2021 03:35:00 PM EDT [facility] Name Value Range Interpretation Code Description Data Jeannie rce(s) Supporting Document(s) URINALYSIS [facility] eun URINALYSIS SOURCE R [facility] COLOR yellow NORMAL: Yellow [facility] ospital CLARITY clear NORMAL: Clear [facility] spital Specific gravity of Urine by Test strip 1.025 1.001 - 1.030 [facility] pH 5 5 - 9 [facility] Glucose [Mass/volume] in Urine by Test strip NORM NORMAL: Negat [facility] Bilirubin.total [Presence] in Urine by Test strip NEG NORMAL: Negative [facility] Ketones [Presence] in Urine by Test strip NEG NORMAL: Negative [facility] Protein [Mass/volume] in Urine by Test strip [facility] N[facility] [Presence] in Urine by Test strip NEG NORMAL: Negative [facility] BLOOD NEG NORMAL: Negative [facility] LEUK EST NEG NORMAL: Negative [facility] Urobilinogen [Mass/volume] in Urine by Test strip 1 less valentina n 1.0 mg/dL [facility] MICROSCOPIC Not Indicate [facility] ospital ID Date Data Source [id number] 05/03/2020 10:10:00 AM EDT [facility] [address] [place] [address] PHONE: [phone] FAX: [phone] Name .................. : ELLI Denis Acct Number.................. : [id number] ROOM. ................. : MR Number ................... : [id number] Stay type ............. : O/P Discharge Date......... ... : 04/28/20 Admit Date ......... : 04/28/20 Admit Phys .................... : NATY AB Date of ....... : 2000 Family Phys ................... : UNKNOWN ZANE Phone .................. : [phone] Age ................................ : 20 Film# .................. .:[id number] Sex ................................. : M Unsigned transcriptions are preliminary reports and do not represent a medical or legal document MRI LOWER EXT ANY JT W CONT [id number] COMPLETE:04/28/20 15:32 [facility] [id number] (REASON FOR PROCESS: CHRONIC ATRAUMATIC L HIP [...] Copy for: NATY CH Copy for: [address] [facility] REC Page 1 of 1 Name Value Range Interpretation Code Description Data Jeannie rce(s) Supporting Document(s) ID Date Data Source [id number] 04/30/2020 09:08:00 AM EDT [facility] [address] [place] [address] PHONE: [phone] FAX: [phone] Name .................. : ELLI Denis Acct Number.................. : [id number] ROOM. ................. : Number ................... : [id number] Stay type ............. : O/P Discharge Date......... ... : 04/28/20 Admit Date ......... : 04/28/20 Admit Phys .................... : NATY MADSEN Date of ....... : 2000 Family Phys ................... : UNKNOWN ZANE Phone .................. : [phone] Age ................................ : 20 Film# .................. .:[id number] Sex ................................. : M Unsigned transcriptions are preliminary reports and do not represent a medical or legal document INJECTION FOR HIP ARTHROGRAM [id number] COMPLETE:04/28/20 14:17 FAITH 69991 REASON FOR EXAM: [place] [id number] COMPLETE:04/28/20 14:17 FAITH 03156 (REASON FOR PELVIS: CHRONIC ATRAUMATIC L HIP PAIN FLUOROSCOPIC EXAMINATION OF THE LEFT HIP FOR ARTHROGRAM: HISTORY: Chronic atraumatic left hip pain. FINDINGS: The grounds maintenance manager film shows no acute findings. PROCEDURE: The [...] of this dictation. Page 1 of 2 [place] [address] PHONE: [phone] FAX: [phone] Name .................. : ELLI GLASER Adeel Acct Number.................. : [id number] ROOM. ................. : MR Number ................... : [id number] Stay type ............. : O/P Discharge Date......... ... : 04/28/20 Admit Date ......... : 04/28/20 Admit Phys .................... : NATY MADSEN Date of ....... : 2000 Family Phys ................... : UNKNOWN ZANE Phone .................. : [phone] Age .......... ...................... : 20 Film# .................. .:[id number] Sex ................................. : M Unsigned transcriptions are preliminary reports and do not represent a medical or legal document INJECTION FOR HIP ARTHROGRAM [id number] COMPLETE:04/28/20 14:17 FAITH 32045 REASON FOR EXAM: [place] [id number] COMPLETE:04/28/20 14:17 FAITH 04908 (REASON FOR PELVIS: CHRONIC ATRAUMATIC L HIP PAIN Electronically Reviewed and Signed By Vic Craig MD , 04/30/20 09:08, TDS Transcribe Initials: STUART , Transcribe Date: 04/28/20 15:47, Dictation Date: Copy for: NATY BRANDI CH Copy for: [facility] REC Page 2 of 2 Name Value Range Interpretation Code Description Data Jeannie rce(s) Supporting Document(s) ID Date Data Source [id number] 04/30/2020 09:08:00 AM EDT [facility] [address] [place] [address] PHONE: [phone] FAX: [phone] Name .................. : ELLI Denis Acct Number.................. : [id number] ROOM. ................. : Number ................... : [id number] Stay type ............. : O/P Discharge Date......... ... : 04/28/20 Admit Date ......... : 04/28/20 Admit Phys .................... : DARLING AB Date of ....... : 2000 Family Phys ................... : UNKNOWN ZANE Phone .................. : [phone] Age ................................ : 20 Film# .................. .:[id number] Sex ................................. : M Unsigned transcriptions are preliminary reports and do not represent a medical or legal document INJECTION FOR HIP ARTHROGRAM [id number] COMPLETE:04/28/20 14:17 FAITH 44069 REASON FOR EXAM: CH[place]IC [place] [id number] COMPLETE:04/28/20 14:17 FAITH 32701 (REASON FOR PELVIS: CHRONIC ATRAUMATIC L HIP PAIN FLUOROSCOPIC EXAMINATION OF THE LEFT HIP FOR ARTHROGRAM: HISTORY: Chronic atraumatic left hip pain. FINDINGS: The grounds maintenance manager film shows no acute findings. PROCEDURE: The [...] of this dictation. Page 1 of 2 [facility] [address] [place] [address] PHONE: [phone] FAX: [phone] Name .................. : ELLI JAILYN Denis Acct Number.................. : [id number] ROOM. ................. : Number ................... : [id number] Stay type ............. : O/P Discharge Date......... ... : 04/28/20 Admit Date ......... : 04/28/20 Admit Phys .................... : NATY MADSEN Date of ....... : 2000 Family Phys ................... : UNKNOWN ZANE Phone .................. : [phone] Age .......... ...................... : 20 Film# .................. .:[id number] Sex ................................. : M Unsigned transcriptions are preliminary reports and do not represent a medical or legal document INJECTION FOR HIP ARTHROGRAM [id number] COMPLETE:04/28/20 14:17 FAITH [id number] REASON FOR EXAM: CH[place] [id number] COMPLETE:04/28/20 14:17 FAITH [id number] (REASON FOR PELVIS: CHRONIC ATRAUMATIC L HIP [...]
[2021-05-02] MEDS ORDERED: KETOROLAC 30 MG/ML 1ML VIAL IV ONE (13:35)
--- NOTE | 2021-05-02 14:22 | REP ---
INDICATION: abd pain, bleeding with stool. COMPARISON: None. TECHNIQUE: Supine and erect views of the abdomen, frontal view chest. FINDINGS: There is no evidence of free intraperitoneal air. There is no evidence of bowel obstruction. No dilated bowel loops are seen radiographically. No abnormal calcifications are seen in the abdomen or pelvis. There is a transitional vertebral body at the lumbosacral junction with apparent sacralization of L5. No infiltrate is seen in either lung. The heart and mediastinum are unremarkable. IMPRESSION: Negative abdominal series. <Electronically signed by Tyrel Machuca > 05/02/21 [id number]
[2021-05-02 14:30] LABS: BASO % 0.6 % (0.0-1.0); EOS # 0.5 10^3/uL (0.0-0.5); EOS % 7.3 % (0.0-3.0); HEMATOCRIT 46.4 % (42.0-52.0); HEMOGLOBIN 15.7 g/dl (13.5-17.5); LYMPH # 2.7 10^3/uL (1.5-5.0); LYMPH % 42.8 % (24.0-44.0); MEAN CORPUSCULAR HEMOGLOBIN 30.1 pg (27.0-33.0); MEAN CORPUSCULAR HGB CONC 33.8 g/dl (32.0-36.5); MEAN CORPUSCULAR VOLUME 89.1 fl (80.0-96.0); MONO # 0.6 10^3/uL (0.0-0.8); MONO % 9.1 % (2.0-8.0); NEUTROPHILS # 2.5 10^3/uL (1.5-8.5); PLATELET COUNT, AUTOMATED 301 10^3/uL (150-450); RED BLOOD COUNT 5.21 10^6/uL (4.30-6.10); WHITE BLOOD COUNT 6.3 10^3/uL (4.0-10.0)
[2021-05-02 14:49] LABS: INR 1.01; PROTHROMBIN TIME 13.7 SECONDS (12.7-14.5)
[2021-05-02 14:50] LABS: PARTIAL THROMBOPLASTIN TIME 29.1 SECONDS (25.9-37.0)
[2021-05-02 14:59] LABS: ALBUMIN 4.4 GM/DL (3.2-5.2); BILIRUBIN,DIRECT 0.3 MG/DL (0.0-0.2); BILIRUBIN,TOTAL 1.1 MG/DL (0.2-1.0); TOTAL PROTEIN 8.1 GM/DL (6.4-8.2)
[2021-05-02] MEDS ORDERED: ANUS2.5C2 PR (15:03)
== END 2021-05-02 15:00 | disposition home or self-care (01) ==
LOC: M ED 11:02
DX: K92.1 Melena (principal)
CPT/HCPCS: 74021; 80076; 83690; 85025; 85610; 85730; 96374; 99283; J1885